=== PATIENT | male | born 1955 | race Caucasian/White ===

== ENCOUNTER 2019-02-25 20:47 | Inpatient (IN) ==
[2019-02-25] MEDS ORDERED: Isovue-370 500 ML BOTTLE IVP ONE (20:56)
[2019-02-25] MEDS ORDERED: 0.9 % Sodium Chloride 1,000 ML IVC ONE (21:00)
--- NOTE | 2019-02-25 21:02 | Emergency Department Note ---
Disposition Clinical Impression: Left lower lobe pulmonary infiltrate, Cholelithiasis, Proctitis, Ileus, Fecal impaction Abdominal pain Qualifiers: Abdominal location: lower abdomen, unspecified Qualified Code(s): R10.30 - Lower abdominal pain, unspecified Nausea and vomiting Qualifiers: Vomiting type: unspecified Vomiting Intractability: unspecified Qualified Code(s): R11.2 - Nausea with vomiting, unspecified Sepsis Qualifiers: Sepsis type: sepsis due to unspecified organism Sepsis acute organ dysfunction status: unspecified Qualified Code(s): A41.9 - Sepsis, unspecified organism Disposition: Admitted As Inpatient Condition: Serious Referrals: NONE,PCP [Primary Care Provider] - Forms: ED Satisfaction Letter Time of Disposition: 23:32 General Adult HPI - General Chief complaint: ED Nausea/Vomiting/Diarrhea Stated complaint: General Illness Time Seen by Provider: 02/25/19 20:56 Source: patient, EMS Mode of arrival: EMS Limitations: physical limitation Nursing Notes Reviewed: Yes Vital Signs Reviewed: Yes - History of Present Illness HPI Narrative: Patient is a 63-year-old male with a past medical history including hyperlipidemia, GERD, history of any stroke and possible ALS, has a tracheostomy placed and on ventilation for almost a year, has a diaphragmatic pacemaker, has a G-tube but is now able to tolerate by mouth, unable to move bilateral lower extremities, presenting with chief complaint of generalized illness for the last 2-4 days. The patient states he has been feeling nauseous and today he had 2 episodes of nonbilious nonbloody emesis. He has had several episodes of nonbloody watery diarrhea. He is also complaining of suprapubic abdominal pain. He states he has not eaten or drank much today has not urinated since yesterday at 6:30 PM. He denies the urge to go or any pressure. Denies hematuria. He also notes that this was have his gallbladder taken out however they only place a drainage catheter in the right upper quadrant that was removed on February 14. notes that there was some bleeding and purulent drainage coming out of the site today. Patient denies any fevers or chills. Patient denies any chest pain or shortness of breath. Denies cough. Pain Scale: 3 - Related Data Home Medications Medication Instructions Recorded Confirmed Albuterol Sulfate [Proair Hfa] 2 puff IH Q6H PRN 06/14/18 06/14/18 Cholecalciferol (Vitamin D3) 10,000 unit PO Q2W 06/14/18 06/14/18 [Vitamin D3] Linaclotide [Linzess] 145 mcg PO DAILY 06/14/18 06/14/18 Multivit-Minerals/Folic Acid 2 each PO DAILY 06/14/18 06/14/18 [Adult Multi Gummies] Tamsulosin [Flomax] 0.4 mg PO DAILY 06/14/18 06/14/18 Vitamin D Gummie 1 each PO QAM 06/14/18 06/14/18 Allergies Allergy/AdvReac Type Severity Reaction Status Date / Time No Known Allergies Allergy Verified 11/15/16 13:01 All systems ED: reviewed and negative except as stated. Review of Systems: As Per HPI Constitutional: Denies: fever, chills Cardiovascular: Denies: chest pain, palpitations Respiratory: Denies: cough, dyspnea Gastrointestinal: Reports: abdominal pain, nausea, vomiting, diarrhea. Denies: melena, hematochezia Genitourinary: Reports: dysuria. Denies: hematuria Past Medical History - Past Medical History Attestation: Yes The following information was validated with the patient. Source: patient Medical history: Reports: GERD, hyperlipidemia Surgical history: Reports: other Psychiatric history: Reports: no psych history - Social History Smoking Status: Former smoker Physical Exam - General Limitations: no limitations General appearance: alert, in no apparent distress - Head Head exam: atraumatic, normocephalic - Eye Eye exam: Present: normal appearance, EOMI - ENT ENT exam: normal exam, normal oropharynx Course Vital Signs Temperature 99.5 F 02/25/19 20:54 Pulse Rate 115 02/25/19 20:54 Respiratory Rate 23 02/25/19 20:54 Blood Pressure 130/109 02/25/19 20:54 O2 Sat by Pulse Oximetry 98 02/25/19 20:54 Temperature 99.5 F 02/25/19 20:54 Pulse Rate 105 02/25/19 21:48 Respiratory Rate 16 02/25/19 21:48 Blood Pressure 147/100 02/25/19 21:48 O2 Sat by Pulse Oximetry 100 02/25/19 21:48 Oxygen Delivery Oxygen Delivery Ventilator Medical Decision Making - [facility] Narrative Medical decision making narrative: Patient is in no acute distress and is nontoxic appearing however he is tachycardic and tachypneic. He does have lower abdominal tenderness to palpation without peritoneal signs. G-tube appears well. His site where the drainage catheter for the right upper quadrant gallbladder has an erythematous dried blood scab otherwise no active purulent drainage. We will obtain septic workup including chest x-ray, urinalysis. We will obtain straight catheter urinalysis as the patient has not urinated in quite some time. We will also obtain CT abdomen and pelvis with IV contrast. We will obtain CBC, BMP, lactate, blood cultures come EKG as well. Patient will initially received 1 L IV fluid bolus. 22:00 Received a call from [place] [facility]ology that on chest x-ray there is concern for pneumoperitoneum. CT is pending at this time. We will give the patient a dose of IV Zosyn. 23:30 CT pending, patient signed out to Dr. Bruno pending results - Medical Records Medical records reviewed: Yes I reviewed the patient's medical records. - Lab Data Lab results reviewed: Yes I reviewed the patient's lab results. Result diagrams: 02/25/19 21:28 02/25/19 21:28 Lab Results 02/25/19 02/25/19 02/25/19 Range/Units 21:28 21:28 21:28 WBC 9.5 (4.3-11.1) K/mcL RBC 4.43 (4.19-5.50) M/mcL Hgb 12.4 L (12.9-16.9) g/dL Hct 38.4 (37.5-50.1) % MCV 86.7 (83.0-100.0) fL MCH 28.0 (28.0-33.3) pg MCHC 32.3 (31.6-35.5) g/dL RDW 13.7 (11.5-14.5) % Plt Count 652 H (140-400) K/mcL MPV 9.8 (9.4-12.4) fL Immature Gran % 0.3 (0-4) % Seg Neutrophils % 79.2 % Lymphocytes % 16.0 % Monocytes % 4.2 % Eosinophils % 0.1 % Basophils % 0.2 % Neutrophils # 7.6 (1.6-8.9) K/mcL Lymphocytes # 1.5 (0.6-4.6) K/mcL Monocytes # 0.4 (0.0-1.3) K/mcL Eosinophils # 0.0 (0.0-0.6) K/mcL Basophils # 0.0 (0.0-0.2) K/mcL Sodium 137 (136-145) mEq/L Potassium 3.6 (3.5-5.1) mEq/L Chloride 106 (98-107) mEq/L Carbon Dioxide 18 L (23-29) mEq/L BUN 21 (8-23) mg/dL Creatinine 0.33 L (0.70-1.30) mg/dL Est GFR ( Amer) > 60 (> 60) Est GFR (Non-Af Amer) > 60 (> 60) BUN/Creatinine Ratio 64 H (6-26) Glucose 135 H (70-105) mg/dL Calculated Osmolality 289 (280-300) Lactic Acid 0.8 (0.5-2.2) mmol/L Calcium 9.1 (8.6-10.3) mg/dL Urine Color (Yellow) Urine Clarity (Clear) Urine pH (5.0-8.0) pH Units Ur Specific [place] (1.010-1.025) Urine Protein (Neg-Trace) mg/dL Urine Glucose (UA) (Normal) mg/dL Urine Ketones (Negative) mg/dL Urine Blood (Negative) Urine Nitrite (Negative) Urine Bilirubin (Negative) Urine Urobilinogen (Normal) mg/dL Ur Leukocyte Esterase (Negative) Ur Culture Indicated? (NO) 02/25/19 Range/Units 21:52 WBC (4.3-11.1) K/mcL RBC (4.19-5.50) M/mcL Hgb (12.9-16.9) g/dL Hct (37.5-50.1) % MCV (83.0-100.0) fL MCH (28.0-33.3) pg MCHC (31.6-35.5) g/dL RDW (11.5-14.5) % Plt Count (140-400) K/mcL MPV (9.4-12.4) fL Immature Gran % (0-4) % Seg Neutrophils % % Lymphocytes % % Monocytes % % Eosinophils % % Basophils % % Neutrophils # (1.6-8.9) K/mcL Lymphocytes # (0.6-4.6) K/mcL Monocytes # (0.0-1.3) K/mcL Eosinophils # (0.0-0.6) K/mcL Basophils # (0.0-0.2) K/mcL Sodium (136-145) mEq/L Potassium (3.5-5.1) mEq/L Chloride (98-107) mEq/L Carbon Dioxide (23-29) mEq/L BUN (8-23) mg/dL Creatinine (0.70-1.30) mg/dL Est GFR ( Amer) (> 60) Est GFR (Non-Af Amer) (> 60) BUN/Creatinine Ratio (6-26) Glucose (70-105) mg/dL Calculated Osmolality (280-300) Lactic Acid (0.5-2.2) mmol/L Calcium (8.6-10.3) mg/dL Urine Color Yellow (Yellow) Urine Clarity Clear (Clear) Urine pH 6.5 (5.0-8.0) pH Units Ur Specific [place] 1.020 (1.010-1.025) Urine Protein Trace (Neg-Trace) mg/dL Urine Glucose (UA) Normal (Normal) mg/dL Urine Ketones Negative (Negative) mg/dL Urine Blood Negative (Negative) Urine Nitrite Negative (Negative) Urine Bilirubin Negative (Negative) Urine Urobilinogen Normal (Normal) mg/dL Ur Leukocyte Esterase Negative (Negative) Ur Culture Indicated? NO (NO) - Radiology Data Radiology results reviewed: Yes I reviewed the patient's radiology results. - EKG Data EKG #1 EKG attestation: Yes I reviewed and interpreted this EKG. EKG results narrative: EKG obtained at 2150 shows normal sinus rhythm with heart rate 117, QRS duration 155, QTC 450. There is artifact as the patient has a diaphragmatic stimulator. No ST elevation, no ST depression, T wave inversion in lead 3, when compared to old EKG on 06/14/2018, there are no new changes. Attestation Statement - Attestation Attestation: I have seen this patient with the resident physician, I have personally evaluated this patient. I had reviewed the chart and document dictation by the resident physician and aM in agreement with the information documented by the resident physician. Please see documentation by the resident physician for complete chart including past medical history, family medical history, review of systems, current history and physical and laboratory and imaging studies. I was present for all procedures, provided direct supervision for all procedures, was present for the entirety of all procedures and provided direct guidance during the procedures. Please see documentation by the resident physician for any procedures performed. I have reviewed all interpretations of EKGs, and reviewed all EKGs performed on patient's as well. I have also reviewed reports of imaging as provided by radiology. Patient presented to the emergency department with primary chief complaint of progressively increasing abdominal pain and not feeling well over the last 4 days, with decreased by mouth intake, unable to eat or drink anything with nausea and vomiting/dry heaving over the last 24 hours, with decreased output per rectum and decreased urinary output subjective fevers and chills. He denies headache neck pain chest pain or acute shortness of breath he has no current reported respiratory symptoms but has a chronic tracheostomy. 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 He states that he does not believe he needs his diaphragm stimulator anymore, he has a G-tube which he also wants removed. He reports that about 2 months ago he had problems with his gallbladder had a drain put in his gallbladder which was removed 2 weeks ago. There was some concerns that there was maybe some abnormal drainage from the site. He denies headache or neck pain denies any lower extremity swelling. On exam, is chronically ill in appearance but nontoxic in appearance, oropharynx appears to be slightly dry. Lungs are coarse at the bases bilaterally, improved with some suctioning of his tracheostomy. Abdomen is obese with what appears to be some mild anasarca of the abdominal wall, diffuse suprapubic and lower tenderness with some mild upper tenderness without rebound guarding or peritoneal sign. His G-tube site appears healthy, his diaphragmatic abdominal stimulator site appears healthy, the right upper abdomen where his prior cholecystostomy tube site appears healthy there is no purulence, there is a small scab at this site, with no purulence warmth or erythema. Trace lower extremity edema bilaterally no unilateral swelling palpable cord or Homans sign. No jaundice. No petechiae. Patient had vital signs consistent with potential systemic inflammatory response syndrome and was made a sepsis alert, blood cultures were ordered, IV fluids were initiated. He is provided with symptomatically management. He had a Martinez catheter placed because he was unable to provide urine with immediate urine output. Chest x-ray showed findings concerning for possible free air as interpreted by radiology, patient had already had blood culture sent and was given IV Zosyn. CT of the abdomen and pelvis had already been ordered, this showed no evidence of free air, showed findings of possible cholecystitis, fecal impaction with ileus and significant distended loops of bowel and potential proctitis. Also demonstrated likely left lower lobe pneumonia CBC lactic acid renal panel within acceptable limits, elevated alkaline phosphatase and mildly elevated ALTs, no AST elevation, no hyperbilirubinemia no elevated lipase. Patient's G-tube was sent to low intermittent suction, for ileus. He was provided with fluids and symptomatic management for pain and nausea. He had improvement of his symptoms with this. CT showed findings concerning for possible cholecystitis, however the patient just had a cholecystostomy tube removed 2 weeks ago for the same problem in his laboratory studies do not necessarily suggest cholecystitis although he did have evidence for systemic inflammatory response syndrome upon presentation he also had evidence for a potential left lower lobe pneumonia which could be related to aspiration and he does have risk for this he is already given IV Zosyn. I contacted the hospitalist, who also consulted surgery after consultation with surgery, they will admit this patient for Further evaluation and management. Total critical care time as provided by myself excluding any procedures performed in evaluation and management of systemic inflammatory response syndrome, and Compazine nausea vomiting and pneumonia and potential cholecystitis were 30 minutes.
[2019-02-25] MEDS ORDERED: 0.9 % Sodium Chloride 500 ML IVC ONE (21:20)
[2019-02-25 21:41] LABS: Basophils % 0.2 %; Eosinophils % 0.1 %; Hematocrit 38.4 % (37.5-50.1); Hemoglobin 12.4 g/dL (12.9-16.9); Immature Granulocytes % 0.3 % (0-4); Lymphocytes # 1.5 K/mcL (0.6-4.6); Mean Corpuscular HGB Conc 32.3 g/dL (31.6-35.5); Mean Corpuscular Volume 86.7 fL (83.0-100.0); Mean Platelet Volume 9.8 fL (9.4-12.4); Monocytes # 0.4 K/mcL (0.0-1.3); Monocytes % 4.2 %; Neutrophils # 7.6 K/mcL (1.6-8.9); Platelet Count 652 K/mcL (140-400); Red Blood Count 4.43 M/mcL (4.19-5.50); Red Cell Distribution Width 13.7 % (11.5-14.5); Segmented Neutrophils % 79.2 %; White Blood Count 9.5 K/mcL (4.3-11.1)
[2019-02-25] MEDS ORDERED: Piperacillin/Tazobactam 3.375 GM in 0.9 % Sodium Chloride Mini Bag 100 ML IVPB ONE (21:59)
[2019-02-25 22:00] LABS: BUN/Creatinine Ratio 64 (6-26); Blood Urea Nitrogen 21 mg/dL (8-23); Calcium 9.1 mg/dL (8.6-10.3); Carbon Dioxide 18 mEq/L (23-29); Chloride 106 mEq/L (98-107); Glucose 135 mg/dL (70-105); Osmolality,Calculated 289 (280-300); Potassium 3.6 mEq/L (3.5-5.1); Sodium 137 mEq/L (136-145); eGFR For African Americans > 60 (> 60); eGFR For Non-African Americans > 60 (> 60)
[2019-02-25 22:14] LABS: Bilirubin,Urine Negative (Negative); Blood,Urine Negative (Negative); Clarity,Urine Clear (Clear); Color,Urine Yellow (Yellow); Glucose,Urine (UA) Normal (Normal); Ketones,Urine Negative (Negative); Leukocyte Esterase,Urine Negative (Negative); Nitrite,Urine Negative (Negative); PH,Urine 6.5 pH Units (5.0-8.0); Protein,Urine Trace mg/dL (Neg-Trace); Urobilinogen,Urine Normal (Normal)
[2019-02-26 00:32] LABS: Alanine Aminotransferase 144 Units/L (7-52); Albumin 3.4 g/dL (3.5-5.7); Alkaline Phosphatase 437 Units/L (34-104); Aspartate Amino Transferase 36 Units/L (13-39); Bilirubin,Direct 0.2 mg/dL (0.0-0.2); Bilirubin,Indirect 0.6 mg/dL (0.0-1.2); Bilirubin,Total 0.8 mg/dL (0.3-1.0); Globulin 3.4 g/dL (2.4-3.5); Lipase 11 Units/L (11-82); Total Protein 6.8 g/dL (6.4-8.9)
[2019-02-26] MEDS ORDERED: Ketorolac 15 MG/ML VIAL IVP PRN (01:09)
[2019-02-26] MEDS ORDERED: Ondansetron 4 MG/2 ML VIAL IVP PRN (01:09)
[2019-02-26] MEDS ORDERED: Naloxone 0.4 MG/ML INJ IVP PRN (01:09)
--- NOTE | 2019-02-26 01:11 | AcuteCare Surgery Consult Note ---
Date of Encounter: 02/26/19 Time of Encounter: 01:10 Assessment and Plan (1) Acute cholecystitis due to biliary calculus Current Visit: Yes Status: Acute Pt diagnosis of acute cholecystitis with symptomatic cholelithiasis is discussed. Laparoscopic Cholecystectomy is recommended. Procedure for the surgery, risks and benefits are discussed in detail. Possible known complications for Laparoscopic Cholecystectomy are bleeding, infection, bile duct injury, bile leak, small intestine or stomach injury, stroke, DVT/PE, NM or . Pt understands these risks, which in this case are moderate. Pt wishes to proceed with surgery as soon as possible. NPO. IVF. IV abx. Informed consent is obtained. Pt condition is stable. Surgery is scheduled. (2) Chronic respiratory failure Current Visit: Yes Status: Acute Pt is with trach and s/p diaphragm pacemaker. Qualifiers: Qualified Code(s): J96.10 - Chronic respiratory failure, unspecified whether with hypoxia or hypercapnia (3) HTN (hypertension) Current Visit: No Status: Chronic Qualifiers: Hypertension type: essential hypertension Qualified Code(s): I10 - Essenti al (primary) hypertension History of Present Illness Reason for consult: gallstones (with acute cholecystitis) Requesting physician: Trisha Sam History of present illness: This y/o pt presents to [facility] ED c/o severe abdominal pain. Pt reports pain is predominantly in. Pain radiates to. However, pt also c/o pain in that was . Pt reports pain has been present for. He states that the chronic, intermittent low grade pain worsened to the point of intolerence today. Now, the pain is constant and severe. Pt reports nausea and vomiting. Pt denies hematemesis or coffee ground emesis. Pt reports flatus and BM. BM have become loose today. Pt denies hematochezia or melena. Reports decreased appetite. Denies fever. Past Med Surg Social Fam HX - Past Medical History Medical history: GERD, hyperlipidemia Additional medical history: Former smoker Psychiatric history: no psych history - Past Surgical History Surgical History: other Additional surgical history: cysts removed from arm and back - Social History Smoking Status: Former smoker - Family History Mother History Unknown: Yes Medications and Allergies Apixaban [Eliquis] 5 mg PO BID 02/26/19 [History] Argin/Glut/Cahmb/Collag/Mv-Min [Avi Packet] 1 each PO BID 02/26/19 [History] Ascorbic Acid [Vitamin C] 500 mg PO DAILY 02/26/19 [History] Cholecalciferol (D-3) [Vitamin D] 2,000 unit PO BID 02/26/19 [History] Citalopram Hydrobromide [Citalopram HBr] 10 mg PO BID 02/26/19 [History] Ferrous Sulfate [Iron] 325 mg PO DAILY 02/26/19 [History] Ipratropium/Albuterol Neb [Duoneb] 3 ml IH BID 02/26/19 [History] LORazepam [Ativan] 0.5 mg PO QID PRN 02/26/19 [History] Metoprolol [Lopressor] 25 mg PO BID 02/26/19 [History] Multivit-Min/Iron/Folic Acid/K [Adults Multivitamin Caplet] 1 tab PO DAILY 02/26/19 [History] Omeprazole [PriLOSEC] 20 mg PO DAILY 02/26/19 [History] Ondansetron HCl [Zofran] 4 mg PO QID PRN 02/26/19 [History] Simethicone [Gas Relief] 80 mg PO QID PRN MDD gas 02/26/19 [History] Allergy/AdvReac Type Severity Reaction Status Date / Time No Known Allergies Allergy Verified 11/15/16 13:01 Review of Systems All systems PM: The remainder of the systems were reviewed and are negative - Constitutional anorexia, fatigue, weakness, no chills, no fever(s), no night sweats - EENT Nose, mouth and throat: dry mouth, dysphagia, other (trach in place), no dizziness, no nasal congestion, no nasal discharge, no sinus pain, no sinus pressure, no sore throat - Cardiovascular chest pain, diaphoresis, dyspnea, edema - Respiratory cough, dyspnea, wheezing - Gastrointestinal abdominal pain, belching, bloating, nausea, no constipation, no diarrhea, no hematemesis, no melena, no vomiting - Genitourinary no difficulty urinating, no dysuria, no urinary frequency - Musculoskeletal atrophy, back pain, no joint swelling, no limited range of motion, no neck pain - Integumentary no dry skin, no pruritus, no rash, no wounds, no jaundice - Neurological weakness, no confusion, no dizziness, no focal weakness - Psychiatric no anxiety, no depression - Endocrine no fatigue - Hematologic/Lymphatic no easy bleeding, no easy bruising General Surgery Exam Initial Vital Signs Temp Pulse Resp BP Pulse Ox 99.5 F 115 23 130/109 98 02/25/19 20:54 02/25/19 20:54 02/25/19 20:54 02/25/19 20:54 02/25/19 20:54 - General physical appearance moderate pain. negative: well nourished, no distress, jaundice - Eyes PERRL, normal ocular movement. negative: icteric - ENT no congestion, dry mucosa. negative: nasal discharge - Neck other (trach in place) - Respiratory normal respiratory effort, clear to auscultation - Cardiovascular Cardiovascular exam: Present: RRR. Absent: JVD - Abdomen Abdomen general surgery: Present: bowel sounds present, soft, tender. Absent: distended Abdominal Tenderness: Present: RUQ - Genitourinary Present: normal penis with no external lesions - Integumentary Integumentary general surgery: Present: warm and dry - Neurologic Present: CN 2-12 grossly intact, normal coordination - Musculoskeletal Present: normal posture - Psychiatric Psychiatric general surgery: Present: A&Ox3, appropriate Exam Initial Vital Signs Temp Pulse Resp BP Pulse Ox 99.5 F 115 23 130/109 98 02/25/19 20:54 02/25/19 20:54 02/25/19 20:54 02/25/19 20:54 02/25/19 20:54 Results - Labs 02/26/19 05:36 02/26/19 05:36 Abnormal lab results Hgb 12.4 g/dL (12.9-16.9) L 02/25/19 21:28 Plt Count 652 K/mcL (140-400) H 02/25/19 21:28 Carbon Dioxide 18 mEq/L (23-29) L 02/25/19 21:28 Creatinine 0.33 mg/dL (0.70-1.30) L 02/25/19 21:28 BUN/Creatinine Ratio 64 (6-26) H 02/25/19 21:28 Glucose 135 mg/dL (70-105) H 02/25/19 21:28 ALT 144 Units/L (7-52) H 02/25/19 21:28 Alkaline Phosphatase 437 Units/L (34-104) H 02/25/19 21:28 Albumin 3.4 g/dL (3.5-5.7) L 02/25/19 21:28 Albumin/Globulin Ratio 1.0 (1.1-2.2) L 02/25/19 21:28 Diabetes panel 02/25/19 Range/Units 21:28 Sodium 137 (136-145) mEq/L Potassium 3.6 (3.5-5.1) mEq/L Chloride 106 (98-107) mEq/L Carbon Dioxide 18 L (23-29) mEq/L BUN 21 (8-23) mg/dL Creatinine 0.33 L (0.70-1.30) mg/dL Glucose 135 H (70-105) mg/dL Calcium 9.1 (8.6-10.3) mg/dL AST 36 (13-39) Units/L ALT 144 H (7-52) Units/L Alkaline Phosphatase 437 H (34-104) Units/L Albumin 3.4 L (3.5-5.7) g/dL Calcium panel 02/25/19 Range/Units 21:28 Calcium 9.1 (8.6-10.3) mg/dL Albumin 3.4 L (3.5-5.7) g/dL Pituitary panel 02/25/19 Range/Units 21:28 Sodium 137 (136-145) mEq/L Potassium 3.6 (3.5-5.1) mEq/L Chloride 106 (98-107) mEq/L Carbon Dioxide 18 L (23-29) mEq/L BUN 21 (8-23) mg/dL Creatinine 0.33 L (0.70-1.30) mg/dL Glucose 135 H (70-105) mg/dL Calcium 9.1 (8.6-10.3) mg/dL Adrenal panel 02/25/19 Range/Units 21:28 Sodium 137 (136-145) mEq/L Potassium 3.6 (3.5-5.1) mEq/L Chloride 106 (98-107) mEq/L Carbon Dioxide 18 L (23-29) mEq/L BUN 21 (8-23) mg/dL Creatinine 0.33 L (0.70-1.30) mg/dL Glucose 135 H (70-105) mg/dL Calcium 9.1 (8.6-10.3) mg/dL Total Bilirubin 0.8 (0.3-1.0) mg/dL AST 36 (13-39) Units/L ALT 144 H (7-52) Units/L Alkaline Phosphatase 437 H (34-104) Units/L Albumin 3.4 L (3.5-5.7) g/dL All other labs normal. - Imaging CT scan - abdomen: image reviewed (There is gallbladder wall thickening with gallstones and mild pericholecystic edema.) CT scan - pelvis: image reviewed Consult Discharge Plan - Plan Instructions: Laparoscopic Cholecystectomy (DC) Additional Instructions: General Surgical Discharge Instructions 1. No pushing, pulling, or lifting greater than 15 lbs for 4 weeks. 2. You may remove your dressings and shower beginning today, but no tub baths, soaking, or swimming for 2 weeks. 3. No driving for one weeks unless otherwise specified and then you may resume driving when you are off narcotics and are safe to react in a car. 4. Apply ice 20 minutes every hour that you are awake to your abdomen and Take 650 mg acetaminophen/Tylenol every 8 hours for discomfort. If this does not relieve discomfort, you may take the as needed Percocet. Eat a small snack with pain medication as this will help reduce the risk of nausea. Take narcotics as directed. Do not take more narcotics then directed and do not share your narcotics with any other person. Do not drink alcohol while on narcotics. You can take the Zofran/ondansetron if needed for nausea or with a dose of narcotics to prevent nausea. Do not take more than 4 Grams of Tylenol daily. 5. Take stool softeners (Colace) or a water based laxative (Miralax) while taking narcotics. You may hold for loose stools. 6. Report any fevers greater than 100.5F, increase abdominal discomfort, drainage that looks like pus, increased redness or pain at the surgical site, or any vomiting. 7. Report any pain in the calves, shortness of breath, or rapid heartbeat. 8. Follow-up in the office as directed. 9. If you were prescribed antibiotics, do not stop them without talking to your provider. Referrals: Lidia Delvalle CNP [Advanced Practice Nurse] - 03/19/19 1:30 pm [facility],PCP [Primary Care Provider[facility] -
[2019-02-26] MEDS ORDERED: 0.9 % Sodium Chloride 1,000 ML IVC SCH (01:15)
--- NOTE | 2019-02-26 01:21 | Internal Med History&Physical ---
Date of Encounter: 02/26/19 Time of Encounter: 01:18 Internal Medicine - H&P: HPI Chief complaint: Abdominal Pain History of present illness: Mr. Modi is a 63 year old male with a past medical history of chronic back pain, hypertension, GERD, possible ALS, s/p tracheostomy placed on ventilation for almost a year presumably due to diaphragmatic paralysis requiring diap hragmatic pacemaker presenting with chief complaint of generalized abdominal pain for the past several days. Much of the history was obtained from ED records as patient is is a poor historian due to inability to vocalize during my assessment as he was on his home ventilator. Abdominal pain reported to be involving the lower abdomen and suprapubic region associated with difficulty urinating, 2 episodes of nonbilious nonbloody emesis and subjective fever and chills. No reports of chest pain, shortness of breath or cough. 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 Patient also has a G-tube in place which she feels he does not need anymore and would like removed. Patient also reported issue with his gallbladder for which she had a cholecystostomy tube placed which was recently moved approximately 2 weeks ago. had noted abnormal drainage from the site. On arrival patient was afebrile, mildly tachycardic with a normal leukocyte count and lactic acid. Alkaline phosphatase was elevated at 437 in addition to ALT of 144. Remainder of laboratory workup including urinalysis were unremarkable. A CT of the abdomen was obtained which showed a large amount of stool within the rectum compatible with impaction and mural thickening concerning for stercoral proctitis. There was diffuse dilatation of both the gastric, small and large bowel were noted compatible with ileus. Additionally, there was gallbladder wall thickening with gallstones and mild pericholecystic edema. Given findings case was discussed with acute care surgery for possible cholecystitis. Patient was placed on gastric suctioning via his G-tube with overall 100 mL of abdominal contents drained. Martinez catheter was placed with resulted in a large amount of urine output. Patient on my assessment reported to be feeling significantly better after bladder was drained he states. Patient received a liter and a half of fluids. Blood cultures were obtained patient was given one-time dose of Zosyn. We will admit for for possible acute cholecystitis. Past Med Surg Social Fam HX - Past Medical History Medical history: GERD, hyperlipidemia Additional medical history: Former smoker Psychiatric history: no psych history - Past Surgical History Surgical History: other Additional surgical history: cysts removed from arm and back - Social History Smoking Status: Former smoker - Family History Mother History Unknown: Yes Internal Medicine - H&P: Meds Apixaban [Eliquis] 5 mg PO BID 02/26/19 [History] Argin/Glut/Cahmb/Collag/Mv-Min [Avi Packet] 1 each PO BID 02/26/19 [History] Ascorbic Acid [Vitamin C] 500 mg PO DAILY 02/26/19 [History] Cholecalciferol (D-3) [Vitamin D] 2,000 unit PO BID 02/26/19 [History] Citalopram Hydrobromide [Citalopram HBr] 10 mg PO BID 02/26/19 [History] Ferrous Sulfate [Iron] 325 mg PO DAILY 02/26/19 [History] Ipratropium/Albuterol Neb [Duoneb] 3 ml IH BID 02/26/19 [History] Lactose-Reduced Food [Ensure Plus] 1 bottle PO TID 02/26/19 [History] Metoprolol Tartrate [Lopressor] 25 mg PO BID 02/26/19 [History] Multivit-Min/Iron/Folic Acid/K [Adults Multivitamin Caplet] 1 tab PO DAILY 02/26/19 [History] Omeprazole [PriLOSEC] 20 mg PO DAILY 02/26/19 [History] Simethicone [Gas Relief] 80 mg PO QID PRN MDD gas 02/26/19 [History] Allergy/AdvReac Type Severity Reaction Status Date / Time No Known Allergies Allergy Verified 11/15/16 13:01 All Systems PM: A 10-system review of systems was performed and is negative for pertinent findings except as documented above in the HPI. - Constitutional Constitutional: no chills, no fever(s), no night sweats - EENT Eyes: no change in vision, no discharge, no pain, no photophobia Ears: no ear discharge, no ear pain, no tinnitus Nose, mouth and throat: no dysphagia, no nasal discharge, no neck pain, no sore throat - Cardiovascular Cardiovascular ROS IM: no chest pain, no diaphoresis, no dyspnea, no ligh theadedness, no palpitations, no syncope - Respiratory Respiratory: no cough, no dyspnea, no wheezing, no excessive phlegm production - Gastrointestinal Gastrointestinal: no abdominal pain, no diarrhea, no hematemesis, no hematochezia, no melena, no nausea, no vomiting - Musculoskeletal Musculoskeletal ROS IM: no numbness, no tingling - Integumentary Integumentary IM: no rash, no unusual bruising - Neurological Neurological ROS: no confusion, no convulsions, no focal weakness, no numbness, no tingling, no tremor(s) - Hematologic/Lymphatic Hematologic/Lymphatic: no easy bruising - Constitutional Vitals: Temp Pulse Resp BP Pulse Ox 99.5 F 105 16 147/100 100 02/25/19 20:54 02/25/19 21:48 02/25/19 21:48 02/25/19 21:48 02/25/19 21:48 Exam: General: Alert and oriented 3 lying in bed in no acute distress on trach home ventilator Skin:Normal color, no rash, no lesions. HEENT:EOM, pupils equal, round and reactive. Cardiovascular:Normal S1 & S2, no rubs, murmurs or gallops. No JVD. Pulse regular. Lungs:Normal breath sounds, no wheezes or crackles. Abdomen: Positive bowel sounds; diffuse suprapubic and lower abdominal tenderness with mild palpation no rebound or guarding. G-tube in place with no surrounding evidence of erythema or discharge. Diaphragmatic abdominal stimulator site appears healthy. Extremities:No deformity, no edema or tenderness, no joint swelling or clubbing. Neurological:Normal cognition and motor skills. Pulses:Carotid and radial pulses normal +2. Rest of the physical exam is non contributory Internal Med - H&P Results - Labs CBC & Chem 7: 02/26/19 05:36 02/26/19 05:36 Labs: Short CBC 02/25/19 Range/Units 21:28 WBC 9.5 (4.3-11.1) K/mcL Hgb 12.4 L (12.9-16.9) g/dL Hct 38.4 (37.5-50.1) % Plt Count 652 H (140-400) K/mcL Neutrophils # 7.6 (1.6-8.9) K/mcL BMP 02/25/19 21:28 Sodium 137 Potassium 3.6 Chloride 106 Carbon Dioxide 18 L BUN 21 Creatinine 0.33 L Glucose 135 H Calcium 9.1 Liver Function 02/25/19 Range/Units 21:28 Total Bilirubin 0.8 (0.3-1.0) mg/dL Direct Bilirubin 0.2 (0.0-0.2) mg/dL AST 36 (13-39) Units/L ALT 144 H (7-52) Units/L Alkaline Phosphatase 437 H (34-104) Units/L Albumin 3.4 L (3.5-5.7) g/dL Urine 02/25/19 Range/Units 21:52 Urine Color Yellow (Yellow) Urine Clarity Clear (Clear) Urine pH 6.5 (5.0-8.0) pH Units Ur Specific [place] 1.020 (1.010-1.025) Urine Protein Trace (Neg-Trace) mg/dL Urine Glucose (UA) Normal (Normal) mg/dL - Impressions ITS Impressions Chest X-Ray 02/25/19 21:51 IMPRESSION: 1. Questionable pneumoperitoneum. CT of the abdomen and pelvis is recommended for further evaluation. 2. Dilated loops of bowel, concerning for an ileus. 3. Low lung volumes with bibasilar atelectasis. Results discussed with Dr. Hernandez at 9:59 p.m. on 02/25/2019. D/ / 02/25/2019 22:43:29 Den Carson MD / vimal Interpreting Provider: Den Carson MD Abdomen/Pelvis CT 02/25/19 23:29 IMPRESSION: Large amount of stool within the rectum compatible without impaction. Despite the dilation of the rectum, there is mild mural thickening with surrounding fat stranding, and therefore a component of stercoral proctitis is likely. There is diffuse gaseous dilation of both large and small bowel, most compatible with ileus. Gastric distention also present suggesting gastroparesis. There is gallbladder wall thickening with gallstones and mild pericholecystic edema. Correlate with clinical evidence of cholecystitis. Collapse and consolidation within the lower lungs bilaterally, greater on the left, compatible with some combination of aspiration, scarring, and pneumonia. D/ / Leonel Taylor MD / Leonel Taylor MD Interpreting Provider: Leonel Taylor MD - Assessment and Plan (1) Abdominal pain Current Visit: Yes Status: Acute Assessment and plan: Patient presenting with several day history of lower abdominal pain/suprapubic. CT scan of the abdomen and pelvis showing large amount of stool burden as well as evidence of gastric, small and large bowel distention concerning for ileus. Patient reported to be feeling much better after decompression of the bowels via his G-tube as well as placement of Martinez catheter. Patient had a BM shortly after arrival to the floor. CT scan also showing findings concerning for acute cholecystitis. Acute care surgeon was consult in who assessed the patient and will be taking for cholecystectomy in the morning. -Continue fluids and supportive care -Bowel rest overnight -Continue IV antibiotics for possible acute cholecystitis -Hold Apixiban -Plan for cholecystectomy in the morning Qualifiers: Abdominal location: lower abdomen, unspecified Qualified Code(s): R10.30 - Lower abdominal pain, unspecified (2) Tracheostomy care Current Visit: Yes Status: Acute Assessment and plan: Patient status post tracheostomy ostomy in the setting of a diaphragmatic paralysis with subcutaneous diaphragmatic stimulator in place. Patient reporting that he feels he no longer needs a stimulator. Otherwise is on a home ventilator and performs a daily suctioning as needed himself. -Continue home inhalers twice a day (3) GERD (gastroesophageal reflux disease) Current Visit: No Status: Chronic Assessment and plan: We will transition to Protonix IV push twice a day Qualifiers: Esophagitis presence: esophagitis presence not specified Qualified Code(s): K21.9 - Gastro-esophageal reflux disease without esophagitis (4) HTN (hypertension) Current Visit: No Status: Chronic Assessment and plan: Blood pressure stable. Holding antihypertensives for now Qualifiers: Hypertension type: essential hypertension Qualified Code(s): I10 - Essential (primary) hypertension (5) Pulmonary embolism Current Visit: Yes Status: Acute Assessment and plan: Reported history of PE on Apixiban -Hold anticoagulation for now Qualifiers: Acute cor pulmonale presence: without acute cor pulmonale Qualified Code(s): I26.99 - Other pulmonary embolism without acute cor pulmonale (6) DVT prophylaxis Current Visit: No Status: Acute Assessment and plan: Intermittent pneumatic compression devices - Time Spent With Patient Total time spent is greater than 50% in coordination of care (as documented) at patient's floor/unit and/or counseling patient:
[2019-02-26 06:08] LABS: Basophils % 0.4 %; Eosinophils # 0.1 K/mcL (0.0-0.6); Eosinophils % 1.8 %; Hematocrit 39.1 % (37.5-50.1); Hemoglobin 12.5 g/dL (12.9-16.9); Immature Granulocytes % 0.1 % (0-4); Lymphocytes # 1.9 K/mcL (0.6-4.6); Mean Corpuscular Hemoglobin 28.4 pg (28.0-33.3); Mean Corpuscular Volume 88.9 fL (83.0-100.0); Mean Platelet Volume 9.8 fL (9.4-12.4); Monocytes # 0.6 K/mcL (0.0-1.3); Monocytes % 7.7 %; Neutrophils # 4.6 K/mcL (1.6-8.9); Platelet Count 583 K/mcL (140-400); Red Cell Distribution Width 13.8 % (11.5-14.5); White Blood Count 7.2 K/mcL (4.3-11.1)
[2019-02-26 06:27] LABS: Alanine Aminotransferase 126 Units/L (7-52); Albumin 3.4 g/dL (3.5-5.7); Alkaline Phosphatase 396 Units/L (34-104); Aspartate Amino Transferase 28 Units/L (13-39); BUN/Creatinine Ratio 74 (6-26); Bilirubin,Total 0.8 mg/dL (0.3-1.0); Blood Urea Nitrogen 25 mg/dL (8-23); Calcium 9.6 mg/dL (8.6-10.3); Carbon Dioxide 25 mEq/L (23-29); Chloride 104 mEq/L (98-107); Globulin 3.4 g/dL (2.4-3.5); Glucose 109 mg/dL (70-105); Magnesium 2.1 mg/dL (1.6-2.6); Osmolality,Calculated 295 (280-300); Potassium 3.5 mEq/L (3.5-5.1); Sodium 140 mEq/L (136-145); Total Protein 6.8 g/dL (6.4-8.9); eGFR For African Americans > 60 (> 60); eGFR For Non-African Americans > 60 (> 60)
[2019-02-26 06:37] LABS: INR 1.5; Prothrombin Time 17.2 Seconds (9.4-12.1)
[2019-02-26 06:40] LABS: Activated Partial Thrombo Time 42.4 Seconds (26.0-36.0)
[2019-02-26] MEDS: Piperacillin/Tazobactam 3.375 GM in 0.9 % Sodium Chloride Mini Bag 100 ML IVPB SCH ×2 (07:48→16:16)
[2019-02-26] MEDS: Pantoprazole 40 MG VIAL IVP SCH (07:48)
[2019-02-26] MEDS: Ipratropium/Albuterol Neb 3 ML IH SCH ×2 (11:08→22:16)
[2019-02-26] MEDS ORDERED: Isovue-300 50 ML VIAL ONE ×2 (13:48→20:13)
--- NOTE | 2019-02-26 13:55 | Internal Med Progress Note ---
Hospitalist Progress Note - Encounter Date of Encounter: 02/26/19 Time of Encounter: 13:53 - Subjective Interval History: Patient seen and examined. He notes he is feeling much better. No acute events overnight. Patient says that he has not used his G tube in almost 6 months. He is supposed to have it removed but not sure by who. - Exam Vitals: Temp Pulse Resp BP Pulse Ox 98.2 F 78 18 113/75 93 02/26/19 11:49 02/26/19 11:49 02/26/19 11:49 02/26/19 11:49 02/26/19 11:49 Exam: General: Alert and oriented 3 lying in bed in no acute distress on trach home ventilator Skin:Normal color, no rash, no lesions. HEENT:EOM, pupils equal, round and reactive. Cardiovascular:Normal S1 & S2, no rubs, murmurs or gallops. No JVD. Pulse regular. Lungs:Normal breath sounds, no wheezes or crackles. Abdomen: Positive bowel sounds; non-tender, non-distended. G-tube in place with no surrounding evidence of erythema or discharge. Diaphragmatic abdominal stimulator site appears healthy. Extremities:No deformity, no edema or tenderness, no joint swelling or clubbing. Neurological:Normal cognition and motor skills. Pulses:Carotid and radial pulses normal +2. Rest of the physical exam is non contributory - Assessment and Plan (1) Acute cholecystitis due to biliary calculus Current Visit: Yes Status: Acute Assessment and Plan: Patient presenting with several day history of lower abdominal pain/suprapubic. CT scan of the abdomen and pelvis showing large amount of stool burden as well as evidence of gastric, small and large bowel distention concerning for ileus. Patient reported to be feeling much better after decompression of the bowels via his G-tube as well as placement of Martinez catheter. Patient had a BM shortly after arrival to the floor. CT scan also showing findings concerning for acute cholecystitis. Acute care surgeon was consult in who assessed the patient and will be taking for cholecystectomy in the morning. -Continue fluids and supportive care -Continue abx for now -NPO in preparation for surgery -Surgery consulted: plan for surgery (2) Tracheostomy care Current Visit: Yes Status: Acute Assessment and Plan: Patient status post tracheostomy ostomy in the setting of a diaphragmatic paralysis with subcutaneous diaphragmatic stimulator in place. Patient reporting that he feels he no longer needs a stimulator. Otherwise is on a home ventilator and performs a daily suctioning as needed himself. -Continue home inhalers twice a day -Patient will need to f/u with outpatient physicians with regards to continuation of stimulator (3) GERD (gastroesophageal reflux disease) Current Visit: No Status: Chronic Assessment and Plan: We will transition to Protonix IV push twice a day (4) HTN (hypertension) Current Visit: No Status: Chronic Assessment and Plan: Blood pressure stable -Restart home meds after surgery when patient tolerating PO diet (5) DVT prophylaxis Current Visit: No Status: Acute Assessment and Plan: Intermittent pneumatic compression devices - Time Spent with Patient Total time spent is greater than 50% in coordination of care (as documented) at patient's floor/unit and/or counseling patient: 35 minutes Internal Medicine: Result - Labs CBC & Chem 7: 02/26/19 05:36 02/26/19 05:36 Labs: Short CBC 02/25/19 02/26/19 Range/Units 21:28 05:36 WBC 9.5 7.2 (4.3-11.1) K/mcL Hgb 12.4 L 12.5 L (12.9-16.9) g/dL Hct 38.4 39.1 (37.5-50.1) % Plt Count 652 H 583 H (140-400) K/mcL Neutrophils # 7.6 4.6 (1.6-8.9) K/mcL BMP 02/25/19 02/26/19 21:28 05:36 Sodium 137 140 Potassium 3.6 3.5 Chloride 106 104 Carbon Dioxide 18 L 25 BUN 21 25 H Creatinine 0.33 L 0.34 L Glucose 135 H 109 H Calcium 9.1 9.6 Liver Function 02/25/19 02/26/19 Range/Units 21:28 05:36 Total Bilirubin 0.8 0.8 (0.3-1.0) mg/dL Direct Bilirubin 0.2 (0.0-0.2) mg/dL AST 36 28 (13-39) Units/L ALT 144 H 126 H (7-52) Units/L Alkaline Phosphatase 437 H 396 H (34-104) Units/L Albumin 3.4 L 3.4 L (3.5-5.7) g/dL Urine 02/25/19 Range/Units 21:52 Urine Color Yellow (Yellow) Urine Clarity Clear (Clear) Urine pH 6.5 (5.0-8.0) pH Units Ur Specific [place] 1.020 (1.010-1.025) Urine Protein Trace (Neg-Trace) mg/dL Urine Glucose (UA) Normal (Normal) mg/dL - ABG Interpretation ABG results: PT/INR, D-dimer PT 17.2 Seconds (9.4-12.1) H 02/26/19 05:36 - Impressions Impressions Chest X-Ray 02/25/19 21:51 IMPRESSION: 1. Questionable pneumoperitoneum. CT of the abdomen and pelvis is recommended for further evaluation. 2. Dilated loops of bowel, concerning for an ileus. 3. Low lung volumes with bibasilar atelectasis. Results discussed with Dr. Hernandez at 9:59 p.m. on 02/25/2019. D/ / 02/25/2019 22:43:29 Den Carson MD / vimal Interpreting Provider: Den Carson MD Abdomen/Pelvis CT 02/25/19 23:29 IMPRESSION: Large amount of stool within the rectum compatible without impaction. Despite the dilation of the rectum, there is mild mural thickening with surrounding fat stranding, and therefore a component of stercoral proctitis is likely. There is diffuse gaseous dilation of both large and small bowel, most compatible with ileus. Gastric distention also present suggesting gastroparesis. There is gallbladder wall thickening with gallstones and mild pericholecystic edema. Correlate with clinical evidence of cholecystitis. Collapse and consolidation within the lower lungs bilaterally, greater on the left, compatible with some combination of aspiration, scarring, and pneumonia. D/ / Leonel Taylor MD / Leonel Taylor MD Interpreting Provider: Leonel Taylor MD Consult Discharge Plan - Plan Instructions: Laparoscopic Cholecystectomy (DC) Additional Instructions: General Surgical Discharge Instructions 1. No pushing, pulling, or lifting greater than 15 lbs for 4 weeks. 2. You may remove your dressings and shower beginning today, but no tub baths, soaking, or swimming for 2 weeks. 3. No driving for one weeks unless otherwise specified and then you may resume driving when you are off narcotics and are safe to react in a car. 4. Apply ice 20 minutes every hour that you are awake to your abdomen and Take 650 mg acetaminophen/Tylenol every 8 hours for discomfort. If this does not relieve discomfort, you may take the as needed Percocet. Eat a small snack with pain medication as this will help reduce the risk of nausea. Take narcotics as directed. Do not take more narcotics then directed and do not share your narcotics with any other person. Do not drink alcohol while on narcotics. You can take the Zofran/ondansetron if needed for nausea or with a dose of narcotics to prevent nausea. Do not take more than 4 Grams of Tylenol daily. 5. Take stool softeners (Colace) or a water based laxative (Miralax) while taking narcotics. You may hold for loose stools. 6. Report any fevers greater than 100.5F, increase abdominal discomfort, drainage that looks like pus, increased redness or pain at the surgical site, or any vomiting. 7. Report any pain in the calves, shortness of breath, or rapid heartbeat. 8. Follow-up in the office as directed. 9. If you were prescribed antibiotics, do not stop them without talking to your provider. Referrals: Lidia Delvalle CNP [Advanced Practice Nurse] - 03/19/19 1:30 pm [facility] [Primary Care Provider[facility] - (3) GERD (gastroesophageal reflux disease) Qualifiers: Esophagitis presence: esophagitis presence not specified Qualified Code(s): K21.9 - Gastro-esophageal reflux disease without esophagitis (4) HTN (hypertension) Qualifiers: Hypertension type: essential hypertension Qualified Code(s): I10 - Essential (primary) hypertension
[2019-02-26 14:12] LABS: Acinetobacter baumannii by PCR Not Detected (Not Detect); Candida albicans by PCR Not Detected (Not Detect); Candida glabrata by PCR Not Detected (Not Detect); Candida krusei by PCR Not Detected (Not Detect); Candida parapsilosis by PCR Not Detected (Not Detect); Candida tropicalis by PCR Not Detected (Not Detect); Enterobacter cloacae Cmplx PCR Not Detected (Not Detect); Enterobacteriaceae by PCR Not Detected (Not Detect); Enterococcus by PCR DETECTED (Not Detect); Escherichia coli by PCR Not Detected (Not Detect); Klebsiella oxytoca by PCR Not Detected (Not Detect); Klebsiella pneumoniae by PCR Not Detected (Not Detect); Proteus by PCR Not Detected (Not Detect); Pseudomonas aeruginosa by PCR Not Detected (Not Detect); Serratia marcescens by PCR Not Detected (Not Detect); Staphylococcus aureus by PCR Not Detected (Not Detect); Staphylococcus by PCR Not Detected (Not Detect); Streptococcus agalactiae(B)PCR Not Detected (Not Detect); Streptococcus by PCR Not Detected (Not Detect); Streptococcus pneumoniae PCR Not Detected (Not Detect); Streptococcus pyogenes (A) PCR Not Detected (Not Detect); blaKPC Carbapenem-Resist Gene Not Detected (Not Detect); mecA Methicillin-Resist Gene Not Detected (Not Detect); vanA/B Vancomycin-Resist Genes Not Detected (Not Detect)
--- NOTE | 2019-02-26 16:02 | Anesthesia Evaluation PreOp ---
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 Other Medical History: GERD Anesthesia History: No Prior Anesthetic Complications, Past Anesthesia (trach, diaphragmatic pacer) Medications and Allergies Apixaban [Eliquis] 5 mg PO BID 02/26/19 [History] Argin/Glut/Cahmb/Collag/Mv-Min [Avi Packet] 1 each PO BID 02/26/19 [History] Ascorbic Acid [Vitamin C] 500 mg PO DAILY 02/26/19 [History] Cholecalciferol (D-3) [Vitamin D] 2,000 unit PO BID 02/26/19 [History] Citalopram Hydrobromide [Citalopram HBr] 10 mg PO BID 02/26/19 [History] Ferrous Sulfate [Iron] 325 mg PO DAILY 02/26/19 [History] Ipratropium/Albuterol Neb [Duoneb] 3 ml IH BID 02/26/19 [History] LORazepam [Ativan] 0.5 mg PO QID PRN 02/26/19 [History] Metoprolol [Lopressor] 25 mg PO BID 02/26/19 [History] Multivit-Min/Iron/Folic Acid/K [Adults Multivitamin Caplet] 1 tab PO DAILY 02/26/19 [History] Omeprazole [PriLOSEC] 20 mg PO DAILY 02/26/19 [History] Ondansetron HCl [Zofran] 4 mg PO QID PRN 02/26/19 [History] Simethicone [Gas Relief] 80 mg PO QID PRN MDD gas 02/26/19 [History] Allergy/AdvReac Type Severity Reaction Status Date / Time No Known Allergies Allergy Verified 11/15/16 13:01 - Meds/Allergy Pre-op Review Medications Reviewed: Yes Allergies Reviewed: Yes Beta Blockers on Current Med List: No Anesthesia Results - Labs 02/26/19 05:36 02/26/19 05:36 - Imaging EKG: report reviewed ( Interpretive Statements Sinus rhythm Inferior infarct, old Electronically Signed On 06-15-2018 17:07:10 EST by Sánchez Foster) Anesthesia Exam Vital Signs/O2 Sat, Most Current Temp Pulse Resp BP Pulse Ox 98.2 F 78 18 113/75 95 02/26/19 11:49 02/26/19 11:49 02/26/19 11:49 02/26/19 11:49 02/26/19 14:22 Weight: 74kg NPO (# of Hours): >8 - HEENT Pupil (Motor): Pupils equal, EOMI Mallampati: Trach Teeth: Normal Oral Opening: Greater than 3 - 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
[2019-02-26] MEDS ORDERED: Ondansetron 4 MG/2 ML VIAL IVP ONE (16:08)
[2019-02-26] MEDS ORDERED: *HR* Meperidine 25 MG/ML SYRINGE IVP PRN (16:08)
[2019-02-26] MEDS ORDERED: *HR* FentaNYL (PF) 100 MCG/2 ML VIAL IVP PRN (16:08)
[2019-02-26] MEDS ORDERED: Acetaminophen IV 1,000 MG/100 ML INFUS..BTL ONE (16:12)
[2019-02-26] MEDS ORDERED: *HR* Rocuronium Bromide 50 MG/5 ML VIAL ONE (16:14)
[2019-02-26] MEDS ORDERED: Lidocaine -MPF 2% 2 ML VIAL ONE (16:14)
[2019-02-26] MEDS ORDERED: *HR* Propofol 200 MG/20 ML VIAL IVP ONE (16:14)
[2019-02-26] MEDS ORDERED: *HR* Midazolam HCl 2 MG/2 ML VIAL ONE (16:23)
[2019-02-26] MEDS ORDERED: EPHEDrine 50 MG/ML VIAL ONE (16:31)
[2019-02-26] MEDS ORDERED: Dexamethasone 4 MG/ML VIAL ONE (16:47)
[2019-02-26] MEDS ORDERED: *HR* FentaNYL (PF) 100 MCG/2 ML VIAL ONE (17:06)
[2019-02-26] MEDS ORDERED: *HR* Phenylephrine 10 MG/ML VIAL ONE (17:19)
[2019-02-26] MEDS ORDERED: *HR* HYDROMORPHONE 2 MG/ML VIAL ONE (21:11)
--- NOTE | 2019-02-26 22:38 | Operative Note ---
Date of procedure: 02/26/19 Pre-op diagnosis: Acute cholecystitis with cholelithiasis; S/P cholecystostomy Post-op diagnosis: same (with severe intraabdominal adhesions) Procedure: 1. Laparoscopy with extensive lysis of adhesions 2. Laparoscopic repair of enterotomy 3. Open cholecystectomy 4. Intraoperative cholangiogram Complications: none Surgeon: Araceli Mckee Was there an training program assistant present: Yes Support Manager: Tammie Harris Estimated blood loss (cc): 300 Specimen: gallbladder Condition: stable Disposition: PACU Procedure in Detail: This 63 year-old male with acute cholecystitis with cholelithiasis s/p cholecystostomy tube was taken to the operating room and placed in the supine position. The anterior abdominal wall is prepped and draped in the usual sterile fashion. Great care was taken to prep around his PEG and diaphragmatic stimulator. A 1-2 cm curvilinear incision is made in the infraumbilical area and subcutaneous tissue was dissected down to anterior rectus fascia. Fascia is grasped with a Devyn clamp, stay sutures were placed in the fascia is divided. Posterior rectus fascia and peritoneum were elevated and divided in the same manner. A Elva port is inserted. The patient is placed in reverse Trendelenburg position and rotated to the left.Exploration of the intraabdominal cavity reveals severe intraoperative adhesions in the RUQ. The gallbladder it not able to be visualized initially. Under direct visualization, x2 5 mm posts were inserted in careful left subcostal postitions. Care is taken to avoid dislodging the diaphragmatic pacemaker leads. Lysis of adhesions began. The AMBERLY between the colon and liver was technically demanding and time consuming. Omental adhesions are divided bluntly and sharply. A colotomy is made inadvertently in the hepatic flexure of the colon and it is repaired in layers laparoscopically. Eventually a significantly abnormal gallbladder is identified. The duodenum is strictly adherent to the gallbladder. Both sharp and blunt dissection is used to divide these adhsions. A serosal tear is identified on the duodenum. After several hours of lysis of adhesions laparoscopically, a decision is made to convert the cholecystectomy to open due to slow progress and better ability to repair the serosal tear in the duodeum without compromise to CBD. A left subcostal incision is made in the skin. Subcutaneous tissue is divided using electrocautery. The external and internal obliques and tranversus abdominus are divided using electrocautery. After the gallbladder is dissected from the liver bed, a subhepatic abscess is encountered and copious amounts of bile stained purulent fluid is suctioned. The gallbladder is grasped and dissected off the liver. It is also grasped and retracted in the lateral direction. The cystic duct was not easily identified. A tubular structure near what was thought to be the neck of the gallbladder was circumferentially dissected and ligated distally and then it tore. The proximal part could not be identified with confidence. Because of this and the extremely abnormal RUQ anatomy and difficult surgery, it is decided to perform a cholangiogram. The gallbladder is removed from the liver bed. The subhepatic abscess is drained. A choledochotomy is made. It is known that the cholangiocatheter is placed in the CBD duct as it is the only nonobliterated structure in the beatris hepatis. A cholangiogram is obtained. There is easy filling of the CBD, common hepatic duct and hepatic radicals. Easy filling of the duodenum is appreciated. There are no filling defects. When the cholangiogram is completed, the catheter is removed and the CBD rent is repair with vicryl and silk sutures. There is no leakage of bile. Copious irrigation is carried out in the RUQ. Hemostasis was perfected using electrocautery and 3 g of Vanessa. The bowel in the RUQ is inspected for any missed colotomy or enterotomy. None are appreciated. x2 10-flat CHIP drains are placed in Colón's pouch and the gallbladder fossa. The left subcostal incision is closed in layers using #1 looped PDS. The skin in closed with trish. The infraumbilical incsion is closed with 0-Vicryl on fascia and trish on skin. Sterile dressings are placed. The drains are sown into position with 3-0 vicryl. During the course of the operation the pt lost 300 cc of blood. He became transiently hypotensive so, 2 U PRBC of O neg was transfused. Pt is normotensive at the conclusion of surgery. Patient tolerated procedure and was taken to the ICU in good condition.
[2019-02-27] MEDS: Pantoprazole 40 MG VIAL IVP SCH ×2 (00:32→05:54)
[2019-02-27] MEDS: Ampicillin/Sulbactam 3,000 MG in 0.9 % Sodium Chloride Mini Bag 100 ML IVPB SCH ×5 (00:43→23:33)
[2019-02-27 04:44] LABS: Basophils % 0.1 %; Hematocrit 37.7 % (37.5-50.1); Hemoglobin 11.8 g/dL (12.9-16.9); Immature Granulocytes % 0.4 % (0-4); Lymphocytes # 0.9 K/mcL (0.6-4.6); Lymphocytes % 4.2 %; Mean Corpuscular HGB Conc 31.3 g/dL (31.6-35.5); Mean Corpuscular Volume 89.5 fL (83.0-100.0); Mean Platelet Volume 10.3 fL (9.4-12.4); Monocytes % 4.6 %; Platelet Count 578 K/mcL (140-400); Red Blood Count 4.21 M/mcL (4.19-5.50); Red Cell Distribution Width 14.7 % (11.5-14.5); Segmented Neutrophils % 90.7 %
[2019-02-27 04:53] LABS: White Blood Count 20.9 K/mcL (4.3-11.1)
[2019-02-27 05:05] LABS: Alanine Aminotransferase 182 Units/L (7-52); Albumin 2.7 g/dL (3.5-5.7); Alkaline Phosphatase 322 Units/L (34-104); Aspartate Amino Transferase 185 Units/L (13-39); BUN/Creatinine Ratio 52 (6-26); Bilirubin,Total 2.4 mg/dL (0.3-1.0); Blood Urea Nitrogen 26 mg/dL (8-23); Calcium 8.4 mg/dL (8.6-10.3); Carbon Dioxide 24 mEq/L (23-29); Chloride 109 mEq/L (98-107); Globulin 2.6 g/dL (2.4-3.5); Glucose 185 mg/dL (70-105); Osmolality,Calculated 304 (280-300); Sodium 142 mEq/L (136-145); Total Protein 5.3 g/dL (6.4-8.9); eGFR For African Americans > 60 (> 60); eGFR For Non-African Americans > 60 (> 60)
[2019-02-27] MEDS ORDERED: MetroNIDAZOLE 500 MG/100 ML 500 MG/100 ML BAG IVPB SCH (08:00)
--- NOTE | 2019-02-27 09:07 | Internal Med Progress Note ---
Hospitalist Progress Note - Encounter Date of Encounter: 02/27/19 Time of Encounter: 07:45 - Subjective Interval History: Patient feels well after his surgery. Other than some incisional pain, he has no complaints. 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 He has a diagphramatic stimulator in place and hopes to wean off ventilator in the future. Of concern is that patient has G+ cocci in blood. I added Vancomycin and Flagyl to his regimen. I will repeat daily blood cultures x 2 starting tomorrow. - Exam Vitals: Temp Pulse Resp BP Pulse Ox 98.4 F 112 21 122/82 96 02/27/19 07:14 02/27/19 06:00 02/27/19 06:00 02/27/19 06:00 02/27/19 06:00 Exam: General: NAD; pleasant, cooperative HEENT: dry mucosa; trahc/vent; neck supple Chest: CTA B, no WRR, RRR/IRR, HR 990-100's, no MTR, Abdomen: incisions clean, dry, incisional pain Ext: trace edema, contractures (mild); pulses 1-2+ Neuro: A&Ox3; unbale mirian move legs, + sensation Skin: warm and dry - Assessment and Plan (1) Acute cholecystitis due to biliary calculus Current Visit: Yes Status: Acute Assessment and Plan: 1. S/P cholecytectomy. 2. Post-op care per surgery. 3. Continue and broaden antibiotics given G+ sepsis/bacteremia. 4. Diet per surgery. (2) Sepsis Current Visit: Yes Status: Acute Assessment and Plan: 1. Continue antibiotics and add Vancomycin given G+ bacteria in blood. 2. Hemodynamically stable. 3. Infected source (GB) removed. 4. Daily blood culture x 3 total. 5. Patient has diaphragmatic stimulator in place. Follow blood cultures; if remain positive, may need to go back to [facility] and have it removed. (3) ALS (amyotrophic lateral sclerosis) Current Visit: Yes Status: Chronic Assessment and Plan: 1. Continue chronic home vent. 2. Follow up with [place] outpatient clinic. (4) HTN (hypertension) Current Visit: Yes Status: Chronic Assessment and Plan: 1. Monitor BP and resume/adjust home meds as appropriate. (5) DVT prophylaxis Current Visit: No Status: Acute Assessment and Plan: 1. EPCD's. 2. Add Heparin SQ tomorrow. Plan of Care Discussed with: other (MDR team, patient) Internal Medicine: Result - Labs CBC & Chem 7: 02/27/19 03:48 02/27/19 03:48 Labs: Short CBC 02/27/19 Range/Units 03:48 WBC 20.9 H D (4.3-11.1) K/mcL Hgb 11.8 L (12.9-16.9) g/dL Hct 37.7 (37.5-50.1) % Plt Count 578 H (140-400) K/mcL Neutrophils # 19.0 H (1.6-8.9) K/mcL BMP 02/27/19 03:48 Sodium 142 Potassium 4.0 Chloride 109 H Carbon Dioxide 24 BUN 26 H Creatinine 0.50 L Glucose 185 H Calcium 8.4 L Liver Function 02/27/19 Range/Units 03:48 Total Bilirubin 2.4 H (0.3-1.0) mg/dL AST 185 H (13-39) Units/L ALT 182 H (7-52) Units/L Alkaline Phosphatase 322 H (34-104) Units/L Albumin 2.7 L (3.5-5.7) g/dL - ABG Interpretation ABG results: PT/INR, D-dimer PT 17.2 Seconds (9.4-12.1) H 02/26/19 05:36 - Impressions Impressions Cholangiogram,Operative 02/26/19 22:32 IMPRESSION: Intraoperative cholangiogram, as detailed above. Please see operative report for further details. D/ / Se Garcia / Se Garcia Interpreting Provider: Se Garcia Consult Discharge Plan - Plan Instructions: Laparoscopic Cholecystectomy (DC) Additional Instructions: General Surgical Discharge Instructions 1. No pushing, pulling, or lifting greater than 15 lbs for 4 weeks. 2. You may remove your dressings and shower beginning today, but no tub baths, soaking, or swimming for 2 weeks. 3. No driving for one weeks unless otherwise specified and then you may resume driving when you are off narcotics and are safe to react in a car. 4. Apply ice 20 minutes every hour that you are awake to your abdomen and Take 650 mg acetaminophen/Tylenol every 8 hours for discomfort. If this does not relieve discomfort, you may take the as needed Percocet. Eat a small snack with pain medication as this will help reduce the risk of nausea. Take narcotics as directed. Do not take more narcotics then directed and do not share your narcotics with any other person. Do not drink alcohol while on narcotics. You can take the Zofran/ondansetron if needed for nausea or with a dose of narcotics to prevent nausea. Do not take more than 4 Grams of Tylenol daily. 5. Take stool softeners (Colace) or a water based laxative (Miralax) while taking narcotics. You may hold for loose stools. 6. Report any fevers greater than 100.5F, increase abdominal discomfort, drainage that looks like pus, increased redness or pain at the surgical site, or any vomiting. 7. Report any pain in the calves, shortness of breath, or rapid heartbeat. 8. Follow-up in the office as directed. 9. If you were prescribed antibiotics, do not stop them without talking to your provider. Referrals: Lidia Delvalle, [employer]NE[employer]ING MACHINE OPERATOR [Advanced Practice Nurse] - 03/19/19 1:30 pm [facility] [Primary Care Provider[facility] - (2) Sepsis Qualifiers: Sepsis type: sepsis due to unspecified organism Sepsis acute organ dysfunction status: without acute organ dysfunction Qualified Code(s): A41.9 - Sepsis, unspecified organism (4) HTN (hypertension) Qualifiers: Hypertension type: essential hypertension Qualified Code(s): I10 - Essential (primary) hypertension
[2019-02-27] MEDS ORDERED: 0.9 % Sodium Chloride 1,000 ML IVC SCH ×2 (09:30→11:43)
[2019-02-27] MEDS ORDERED: *HR* FentaNYL (PF) 100 MCG/2 ML VIAL IVP PRN (09:30)
[2019-02-27] MEDS: Ipratropium/Albuterol Neb 3 ML IH SCH ×2 (10:45→21:57)
[2019-02-27] MEDS ORDERED: Naloxone 0.4 MG/ML INJ IVP PRN (11:43)
[2019-02-27] MEDS ORDERED: *HR* Metoprolol 5 MG/5 ML VIAL IVP PRN (11:43)
[2019-02-27] MEDS ORDERED: Ondansetron 4 MG/2 ML VIAL IVP PRN (11:43)
[2019-02-27] MEDS: *HR* FentaNYL (PF) 100 MCG/2 ML VIAL IVP PRN ×2 (12:18→19:51)
--- NOTE | 2019-02-27 13:31 | AcuteCareSurgery Progress Note ---
Date of Encounter: 02/27/19 Time of Encounter: 13:26 - Assessment and Plan (1) Acute cholecystitis due to biliary calculus Current Visit: Yes Status: Acute 63M POD #1 s/p lap converted to open; pain improved; afebrile; mildy tachycardic likely related to pain diet as tolerated; start with clears, then advance as tolerated activity as tolerated PO pain meds drains to suction cares per primary team will cont to follow Subjective Patient reports: no new complaints, feels better, still having pain, afebrile Objective Vital Signs - Last 8 Hours Temp Pulse Resp BP Pulse Ox 02/27/19 12:00 130 24 120/76 97 02/27/19 10:46 24 97 02/27/19 10:40 97.4 F L 02/27/19 10:00 112 18 118/94 96 02/27/19 08:00 108 26 112/80 96 02/27/19 07:14 98.4 F 02/27/19 06:00 112 21 122/82 96 Intake and Output 02/26/19 02/27/19 02/27/19 23:59 07:59 15:59 Intake Total 200 / 550 350 / 550 Output Total 300 / 1100 450 / 585 135 / 585 Balance -300 / -1000 -250 / -35 215 / -35 Intake: IV Fluids 200 / 550 350 / 550 Unasyn 3,000 MG In 0.9 % Sodium 200 / 200 Chloride (Mini-Bag +) 100 ML @ 200 mls/hr IVPB Q6HR BLANCHE Rx#: [id number] Flagyl Premix 500 MG/100 ML 500 100 / 100 mg In 100 ml @ 100 mls/hr IVPB Q8HR [facility]ANC[facility] Rx#:[id number] Vancocin 1,250 MG In 0.9 % 250 / 250 Sodium Chloride 250 ML @ 167 mls/hr IVPB Q12H [facility] Rx#: [id number] Output: Estimated Blood Loss 300 / 300 Catheter 300 / 375 75 / 375 Gastric Drainage 0 / 0 0 / 0 Wound Drainage 150 / 210 60 / 210 RIGHT JP1 90 / 130 40 / 130 RIGHT JP2 60 / 80 20 / 80 Other: Weight 79.1 kg Patient Weight 02/27/19 23:59 Weight 79.1 kg - General physical appearance no distress - Respiratory normal expansion, normal respiratory effort - Cardiovascular Cardiovascular exam: Present: RRR - Abdomen Abdomen: Present: soft, tender (appropriately tender) - Incision Incision: Present: clean and dry - Neurologic CN 2-12 grossly intact - Musculoskeletal normal posture - Psychiatric oriented to time, oriented to person, oriented to place - Labs 02/27/19 03:48 02/27/19 03:48 Diabetes panel 02/27/19 Range/Units 03:48 Sodium 142 (136-145) mEq/L Potassium 4.0 (3.5-5.1) mEq/L Chloride 109 H (98-107) mEq/L Carbon Dioxide 24 (23-29) mEq/L BUN 26 H (8-23) mg/dL Creatinine 0.50 L (0.70-1.30) mg/dL Glucose 185 H (70-105) mg/dL Calcium 8.4 L (8.6-10.3) mg/dL AST 185 H (13-39) Units/L ALT 182 H (7-52) Units/L Alkaline Phosphatase 322 H (34-104) Units/L Albumin 2.7 L (3.5-5.7) g/dL Calcium panel 02/27/19 Range/Units 03:48 Calcium 8.4 L (8.6-10.3) mg/dL Albumin 2.7 L (3.5-5.7) g/dL Pituitary panel 02/27/19 Range/Units 03:48 Sodium 142 (136-145) mEq/L Potassium 4.0 (3.5-5.1) mEq/L Chloride 109 H (98-107) mEq/L Carbon Dioxide 24 (23-29) mEq/L BUN 26 H (8-23) mg/dL Creatinine 0.50 L (0.70-1.30) mg/dL Glucose 185 H (70-105) mg/dL Calcium 8.4 L (8.6-10.3) mg/dL Adrenal panel 02/27/19 Range/Units 03:48 Sodium 142 (136-145) mEq/L Potassium 4.0 (3.5-5.1) mEq/L Chloride 109 H (98-107) mEq/L Carbon Dioxide 24 (23-29) mEq/L BUN 26 H (8-23) mg/dL Creatinine 0.50 L (0.70-1.30) mg/dL Glucose 185 H (70-105) mg/dL Calcium 8.4 L (8.6-10.3) mg/dL Total Bilirubin 2.4 H (0.3-1.0) mg/dL AST 185 H (13-39) Units/L ALT 182 H (7-52) Units/L Alkaline Phosphatase 322 H (34-104) Units/L Albumin 2.7 L (3.5-5.7) g/dL Consult Discharge Plan - Plan Instructions: Laparoscopic Cholecystectomy (DC) Additional Instructions: General Surgical Discharge Instructions 1. No pushing, pulling, or lifting greater than 15 lbs for 4 weeks. 2. You may remove your dressings and shower beginning today, but no tub baths, soaking, or swimming for 2 weeks. 3. No driving for one weeks unless otherwise specified and then you may resume driving when you are off narcotics and are safe to react in a car. 4. Apply ice 20 minutes every hour that you are awake to your abdomen and Take 650 mg acetaminophen/Tylenol every 8 hours for discomfort. If this does not relieve discomfort, you may take the as needed Percocet. Eat a small snack with pain medication as this will help reduce the risk of nausea. Take narcotics as directed. Do not take more narcotics then directed and do not share your n arcotics with any other person. Do not drink alcohol while on narcotics. You can take the Zofran/ondansetron if needed for nausea or with a dose of narcotics to prevent nausea. Do not take more than 4 Grams of Tylenol daily. 5. Take stool softeners (Colace) or a water based laxative (Miralax) while taking narcotics. You may hold for loose stools. 6. Report any fevers greater than 100.5F, increase abdominal discomfort, drainage that looks like pus, increased redness or pain at the surgical site, or any vomiting. 7. Report any pain in the calves, shortness of breath, or rapid heartbeat. 8. Follow-up in the office as directed. 9. If you were prescribed antibiotics, do not stop them without talking to your provider. Referrals: Lidia Delvalle CNP [Advanced Practice Nurse] - 03/19/19 1:30 pm [facility] [Primary Care Provider[facility] -
--- NOTE | 2019-02-27 15:45 | Electrocardiograph Report ---
[address] [place] [address] Test Date: 2019-02-25 Pat Name: Michael Modi Department: EXAM11 Room: [facility] Gender: M [employer] Physician: : [id number] Requested By: Chloé Hernandez Order Number: [id number] Reading MD: Sánchez Foster Measurements Intervals [place] Rate: 117 P: VT: QRS: 32 QRSD: 155 T: -21 QT: 322 QTc: 450 Interpretive Statements Sinus rhythm Possible inferior infarct, age undetermined Significant artifact Consider repeat ECG Electronically Signed On 02-27-2019 15:43:03 EDT by Sánchez Foster
[2019-02-27] MEDS: MetroNIDAZOLE 500 MG/100 ML 500 MG/100 ML BAG IVPB SCH ×2 (16:08→23:30)
[2019-02-27] MEDS ORDERED: Simethicone 80 MG TAB.CHEW PO PRN (22:59)
[2019-02-27] MEDS ORDERED: Ondansetron ODT 4 MG TAB.RAPDIS PO PRN (22:59)
[2019-02-27] MEDS: *HR* LORazepam 1 MG TABLET PO PRN (23:29)
[2019-02-28 01:19] LABS: Basophils % 0.2 %; Eosinophils % 0.1 %; Hematocrit 27.1 % (37.5-50.1); Immature Granulocytes % 0.3 % (0-4); Lymphocytes # 1.1 K/mcL (0.6-4.6); Lymphocytes % 11.4 %; Mean Corpuscular Volume 90.3 fL (83.0-100.0); Monocytes # 0.7 K/mcL (0.0-1.3); Monocytes % 6.9 %; Neutrophils # 8.1 K/mcL (1.6-8.9); Platelet Count 395 K/mcL (140-400); Red Cell Distribution Width 14.5 % (11.5-14.5); Segmented Neutrophils % 81.1 %
[2019-02-28 01:23] LABS: Hemoglobin 8.4 g/dL (12.9-16.9)
[2019-02-28 01:28] LABS: INR 1.6; Prothrombin Time 18.2 Seconds (9.4-12.1)
[2019-02-28 01:31] LABS: Activated Partial Thrombo Time 33.9 Seconds (26.0-36.0)
[2019-02-28 01:36] LABS: Alanine Aminotransferase 106 Units/L (7-52); Albumin 2.4 g/dL (3.5-5.7); Alkaline Phosphatase 240 Units/L (34-104); Aspartate Amino Transferase 55 Units/L (13-39); BUN/Creatinine Ratio 113 (6-26); Bilirubin,Total 1.4 mg/dL (0.3-1.0); Blood Urea Nitrogen 26 mg/dL (8-23); Calcium 7.9 mg/dL (8.6-10.3); Carbon Dioxide 22 mEq/L (23-29); Chloride 111 mEq/L (98-107); Globulin 2.3 g/dL (2.4-3.5); Glucose 116 mg/dL (70-105); Osmolality,Calculated 300 (280-300); Potassium 2.7 mEq/L (3.5-5.1); Sodium 142 mEq/L (136-145); Total Protein 4.7 g/dL (6.4-8.9); eGFR For African Americans > 60 (> 60); eGFR For Non-African Americans > 60 (> 60)
[2019-02-28] MEDS ORDERED: Potassium Chloride 40 MEQ, Lidocaine 1% 2 ML in 0.9 % Sodium Chloride 500 ML IVPB ONE (02:12)
[2019-02-28] MEDS: Ampicillin/Sulbactam 3,000 MG in 0.9 % Sodium Chloride Mini Bag 100 ML IVPB SCH (05:42)
[2019-02-28] MEDS ORDERED: *HR* Heparin 5,000 UNIT/ML VIAL SQ SCH ×2 (08:00)
--- NOTE | 2019-02-28 08:16 | Internal Med Progress Note ---
Hospitalist Progress Note - Encounter Date of Encounter: 02/28/19 Time of Encounter: 08:15 - Subjective Interval History: Pt reports his pain is well controlled, and that he actually had a small BM this morning. Denies SOB or productive cough different than usual, and no issues with trach. No CP or N/V. Does have Martinez in and is OK with removal. - Exam Vitals: Temp Pulse Resp BP Pulse Ox 99.1 F 105 20 141/84 97 02/28/19 07:58 02/28/19 07:58 02/28/19 07:58 02/28/19 07:58 02/28/19 07:58 Exam: General: NAD, good eye contact, relatively well appearing, chronic trach Thoracic: Mech breath sounds b/l, no wheezing or crackles Cardio: Normal S1 and S2, regular rate and rhythm Abdomen: Soft, nontender, nondistended. Does have RUQ incision which is dressed, has tube in place. Also has CHIP drain. Also has G-tube. Extremities: Warm, well perfused. DP pulses 2+ b/l. Does have mild edema b/l LE. Skin: Scattered areas of irritation. Abdominal incisions. Neuro: Awake, fully oriented. Speech fluent. Mild contractures and significantly reduced strength b/l LE - Assessment and Plan (1) Acute cholecystitis due to biliary calculus Current Visit: Yes Status: Acute - Summary of Assessment and Plan Summary of Assessment and Plan: Michael Modi is a 63 M w hx ALS s/p trach who p/w abd pain, fever, CT showing cholecystitis and pneumoperitoneum, taken for operative cholecystectomy 02/[address] Joni Mckee. Acute cholecystitis c/b subhepatic abscess: s/p open cholecystectomy 02/26, doing relatively well post op with little pain. Does have CHIP drains in place with scant drainage. Per GenSurg, concerned for skin/soft tissue infection potential and recommend broad coverage to include PsA at this time. 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, will continue eliquis HTN: holding home antiHTN meds for now GERD: PPI PPx: eliquis Tele: can d/c Activity: PT/OT to assist with assessment of status and if able to transfer FEN: per GenSurg and is on clears today, no MIVF Lines: [facility]: [facility]: patient requires inpatient eval and management at this time, anticipate 2-3 days, will be homegoing Internal Medicine: Result - Labs CBC & Chem 7: 02/28/19 00:59 02/28/19 08:44 Labs: Short CBC 02/28/19 Range/Units 00:59 WBC 10.0 D (4.3-11.1) K/mcL Hgb 8.4 L D (12.9-16.9) g/dL Hct 27.1 L (37.5-50.1) % Plt Count 395 (140-400) K/mcL Neutrophils # 8.1 (1.6-8.9) K/mcL BMP 02/28/19 00:59 Sodium 142 Potassium 2.7 L D Chloride 111 H Carbon Dioxide 22 L BUN 26 H Creatinine 0.23 L Glucose 116 H Calcium 7.9 L Liver Function 02/28/19 Range/Units 00:59 Total Bilirubin 1.4 H (0.3-1.0) mg/dL AST 55 H (13-39) Units/L ALT 106 H (7-52) Units/L Alkaline Phosphatase 240 H (34-104) Units/L Albumin 2.4 L (3.5-5.7) g/dL - ABG Interpretation ABG results: PT/INR, D-dimer PT 18.2 Seconds (9.4-12.1) H 02/28/19 00:59 Consult Discharge Plan - Plan Instructions: Laparoscopic Cholecystectomy (DC) Additional Instructions: General Surgical Discharge Instructions 1. No pushing, pulling, or lifting greater than 15 lbs for 4 weeks. 2. You may remove your dressings and shower beginning today, but no tub baths, soaking, or swimming for 2 weeks. 3. No driving for one weeks unless otherwise specified and then you may resume driving when you are off narcotics and are safe to react in a car. 4. Apply ice 20 minutes every hour that you are awake to your abdomen and Take 650 mg acetaminophen/Tylenol every 8 hours for discomfort. If this does not relieve discomfort, you may take the as needed Percocet. Eat a small snack with pain medication as this will help reduce the risk of nausea. Take narcotics as directed. Do not take more narcotics then directed and do not share your narcotics with any other person. Do not drink alcohol while on narcotics. You ca n take the Zofran/ondansetron if needed for nausea or with a dose of narcotics to prevent nausea. Do not take more than 4 Grams of Tylenol daily. 5. Take stool softeners (Colace) or a water based laxative (Miralax) while taking narcotics. You may hold for loose stools. 6. Report any fevers greater than 100.5F, increase abdominal discomfort, drainage that looks like pus, increased redness or pain at the surgical site, or any vomiting. 7. Report any pain in the calves, shortness of breath, or rapid heartbeat. 8. Follow-up in the office as directed. 9. If you were prescribed antibiotics, do not stop them without talking to your provider. Referrals: Lidia Delvalle CNP [Advanced Practice Nurse] - 03/19/19 1:30 pm [facility] [Primary Care Provider[facility] - (Patient is from [place] and is going to [place])
[2019-02-28] MEDS ORDERED: [UNRECOGNIZED DRUG - OTHER] PO SCH (09:00)
[2019-02-28] MEDS ORDERED: Pantoprazole 40 MG VIAL IVP SCH ×2 (09:00)
[2019-02-28] MEDS: Multivit/Ca/Min/Fe/FA 1 TAB TABLET PO SCH (09:04)
[2019-02-28] MEDS: Apixaban 5 MG TABLET PO SCH ×2 (09:04→20:54)
[2019-02-28] MEDS: Ascorbic Acid 500 MG TABLET PO SCH (09:06)
[2019-02-28] MEDS: Cholecalciferol (D-3) 1,000 UNIT (25MCG) TABLET PO SCH (09:06)
[2019-02-28] MEDS: *HR* FentaNYL (PF) 100 MCG/2 ML VIAL IVP PRN ×3 (09:14→20:53)
--- NOTE | 2019-02-28 09:39 | AcuteCareSurgery Progress Note ---
Date of Encounter: 02/28/19 Time of Encounter: 08:00 - Assessment and Plan (1) Acute cholecystitis due to biliary calculus Current Visit: Yes Status: Acute POD#2 cholecystectomy with IOC. Maintain CHIP for 4-6 weeks or until no drainage/no bile. Pt will be DC'd to home with drains in place. Pt has HH established and who can maintain CHIP management after DC. Incision is erythematous without drainage. Pt is at high risk for SSI due to subhepatic abscess. Will add Merem IV for psuedomonal coverage and follow closely. PEG to stay in place until pt recovered from lisa. This will be removed outpt. Maintain clears due to intraoperative colotomy with repair. Allow for healing. Advance diet on POD#3 or 4. PT/OT consults today. (2) Chronic respiratory failure Current Visit: Yes Status: Acute Qualifiers: Qualified Code(s): J96.10 - Chronic respiratory failure, unspecified whether with hypoxia or hypercapnia (3) HTN (hypertension) Current Visit: No Status: Chronic Qualifiers: Hypertension type: essential hypertension Qualified Code(s): I10 - Essential (primary) hypertension (4) Subhepatic abscess Current Visit: Yes Status: Acute S/P drainage. On IV abx. Subjective Patient reports: no new complaints, feels better, pain is less, tolerating liquids well, flatus, bowel movement, afebrile Narrative: Pt is POD#2 cholecystectomy with IOC. He reports feeling much better. He is tolerating a liquid diet. He reports pain is controlled. +flatus, +BM. Not much activity. Objective Vital Signs - Last 8 Hours Temp Pulse Resp BP Pulse Ox 02/28/19 07:58 99.1 F 105 20 141/84 97 02/28/19 04:09 98.9 F 105 22 132/86 96 Intake and Output 02/27/19 02/28/19 02/28/19 23:59 07:59 15:59 Intake Total 1450 / 2100 500 / 500 Output Total 840 / 1595 350 / 350 Balance 610 / 505 150 / 150 Intake: IV Fluids 1450 / 2100 300 / 300 0.9 % Sodium Chloride 1,000 ML 1000 / 1000 @ 100 mls/hr IVC .Q10H [facility] Rx#: [id number] Unasyn 3,000 MG In 0.9 % Sodium 100 / 200 200 / 200 Chloride (Mini-Bag +) 100 ML @ 200 mls/hr IVPB Q6HR [facility] Rx#: [id number] Flagyl Premix 500 MG/100 ML 500 100 / 100 100 / 100 mg In 100 ml @ 100 mls/hr IVPB Q8HR [facility] Rx#:[id number] Vancocin 1,250 MG In 0.9 % 250 / 250 Sodium Chloride 250 ML @ 167 mls/hr IVPB Q12H [facility] Rx#: [id number] Oral 200 / 200 Output: Gastric Tube Lavage Amount 800 / 800 0 / 0 Left Upper Quadrant 800 / 800 0 / 0 Catheter 0 / 475 300 / 300 Urethral (Martinez) 0 / 0 Wound Drainage 40 / 320 50 / 50 RIGHT JP1 20 / 180 25 / 25 RIGHT JP2 20 / 140 25 / 25 Other: Stool Size Small Moderate Stool Consistency soft Stool Characteristics Pasty Normal for Patient Stool Color Black Brown Green # Bowel Movements 1 - General physical appearance no distress, moderate pain (minimal pain as expected post-op), other (no jaundice) - Eyes other (no icterus), PERRL, normal ocular movement - ENT normal mucosa, no congestion - Neck Neck exam: trachea midline, other (trach in place) - Respiratory normal respiratory effort, clear to auscultation, other (Trach is in place and pt on portable vent) - Cardiovascular Cardiovascular exam: Present: RRR. Absent: JVD - Abdomen Abdomen: Present: bowel sounds present, soft, tender (as expected post-op) Additional Comments: 1 of 2 CHIP with scantly bile-tinged serosanguinous output. PEG in place and clamped. Diaphragmatic pacemaker is in place. - Incision Incision: Present: inflamed (no drainage ), intact, erythema. Absent: draining, purulent - Neurologic CN 2-12 grossly intact, normal coordination - Musculoskeletal normal posture - Psychiatric oriented to time, oriented to person, oriented to place - Labs 02/28/19 00:59 02/28/19 08:44 Diabetes panel 02/28/19 02/28/19 Range/Units 00:59 08:44 Sodium 142 (136-145) mEq/L Potassium 2.7 L D 3.2 L (3.5-5.1) mEq/L Chloride 111 H (98-107) mEq/L Carbon Dioxide 22 L (23-29) mEq/L BUN 26 H (8-23) mg/dL Creatinine 0.23 L (0.70-1.30) mg/dL Glucose 116 H (70-105) mg/dL Calcium 7.9 L (8.6-10.3) mg/dL AST 55 H (13-39) Units/L ALT 106 H (7-52) Units/L Alkaline Phosphatase 240 H (34-104) Units/L Albumin 2.4 L (3.5-5.7) g/dL Calcium panel 02/28/19 Range/Units 00:59 Calcium 7.9 L (8.6-10.3) mg/dL Albumin 2.4 L (3.5-5.7) g/dL Pituitary panel 02/28/19 02/28/19 Range/Units 00:59 08:44 Sodium 142 (136-145) mEq/L Potassium 2.7 L D 3.2 L (3.5-5.1) mEq/L Chloride 111 H (98-107) mEq/L Carbon Dioxide 22 L (23-29) mEq/L BUN 26 H (8-23) mg/dL Creatinine 0.23 L (0.70-1.30) mg/dL Glucose 116 H (70-105) mg/dL Calcium 7.9 L (8.6-10.3) mg/dL Adrenal panel 02/28/19 02/28/19 Range/Units 00:59 08:44 Sodium 142 (136-145) mEq/L Potassium 2.7 L D 3.2 L (3.5-5.1) mEq/L Chloride 111 H (98-107) mEq/L Carbon Dioxide 22 L (23-29) mEq/L BUN 26 H (8-23) mg/dL Creatinine 0.23 L (0.70-1.30) mg/dL Glucose 116 H (70-105) mg/dL Calcium 7.9 L (8.6-10.3) mg/dL Total Bilirubin 1.4 H (0.3-1.0) mg/dL AST 55 H (13-39) Units/L ALT 106 H (7-52) Units/L Alkaline Phosphatase 240 H (34-104) Units/L Albumin 2.4 L (3.5-5.7) g/dL Consult Discharge Plan - Plan Instructions: Laparoscopic Cholecystectomy (DC) Additional Instructions: General Surgical Discharge Instructions 1. No pushing, pulling, or lifting greater than 15 lbs for 4 weeks. 2. You may remove your dressings and shower beginning today, but no tub baths, soaking, or swimming for 2 weeks. 3. No driving for one weeks unless otherwise specified and then you may resume driving when you are off narcotics and are safe to react in a car. 4. Apply ice 20 minutes every hour that you are awake to your abdomen and Take 650 mg acetaminophen/Tylenol every 8 hours for discomfort. If this does not relieve discomfort, you may take the as needed Percocet. Eat a small snack with pain medication as this will help reduce the risk of nausea. Take narcotics as directed. Do not take more narcotics then directed and do not share your narcotics with any other person. Do not drink alcohol while on narcotics. You can take the Zofran/ondansetron if needed for nausea or with a dose of narcotics to prevent nausea. Do not take more than 4 Grams of Tylenol daily. 5. Take stool softeners (Colace) or a water based laxative (Miralax) while taking narcotics. You may hold for loose stools. 6. Report any fevers greater than 100.5F, increase abdominal discomfort, drainage that looks like pus, increased redness or pain at the surgical site, or any vomiting. 7. Report any pain in the calves, shortness of breath, or rapid heartbeat. 8. Follow-up in the office as directed. 9. If you were prescribed antibiotics, do not stop them without talking to your provider. Referrals: Lidia Delvalle CNP [Advanced Practice Nurse] - 03/19/19 1:30 pm [facility]Primary Care Provider[facility] -
[2019-02-28] MEDS: Ipratropium/Albuterol Neb 3 ML IH SCH ×2 (09:57→22:45)
[2019-02-28] MEDS ORDERED: Ampicillin 2 GM in 0.9 % Sodium Chloride Mini Bag 100 ML IVPB SCH (10:00)
[2019-02-28] MEDS ORDERED: Meropenem 1,000 MG in Water for inj. (sterile) 10 ML IVP SCH (16:00)
[2019-02-28] MEDS ORDERED: Aminoglycoside Consult 1 EACH MC ONE (16:04)
[2019-02-28] MEDS: Piperacillin/Tazobactam 3.375 GM in 0.9 % Sodium Chloride Mini Bag 100 ML IVPB SCH ×2 (16:44→23:10)
[2019-02-28] MEDS: *HR* LORazepam 1 MG TABLET PO PRN (23:10)
[2019-03-01 02:43] LABS: Basophils % 0.4 %; Eosinophils # 0.3 K/mcL (0.0-0.6); Hematocrit 25.9 % (37.5-50.1); Hemoglobin 8.2 g/dL (12.9-16.9); Immature Granulocytes % 0.5 % (0-4); Lymphocytes # 1.3 K/mcL (0.6-4.6); Lymphocytes % 14.8 %; Mean Corpuscular HGB Conc 31.7 g/dL (31.6-35.5); Mean Corpuscular Hemoglobin 28.2 pg (28.0-33.3); Mean Platelet Volume 9.9 fL (9.4-12.4); Monocytes # 0.5 K/mcL (0.0-1.3); Monocytes % 5.8 %; Neutrophils # 6.4 K/mcL (1.6-8.9); Platelet Count 379 K/mcL (140-400); Red Blood Count 2.91 M/mcL (4.19-5.50); Red Cell Distribution Width 14.4 % (11.5-14.5); Segmented Neutrophils % 75.5 %; White Blood Count 8.5 K/mcL (4.3-11.1)
[2019-03-01 03:03] LABS: Alanine Aminotransferase 88 Units/L (7-52); Albumin 2.2 g/dL (3.5-5.7); Alkaline Phosphatase 348 Units/L (34-104); Aspartate Amino Transferase 44 Units/L (13-39); BUN/Creatinine Ratio 86 (6-26); Bilirubin,Total 1.1 mg/dL (0.3-1.0); Blood Urea Nitrogen 19 mg/dL (8-23); Calcium 7.5 mg/dL (8.6-10.3); Carbon Dioxide 22 mEq/L (23-29); Chloride 111 mEq/L (98-107); Globulin 2.3 g/dL (2.4-3.5); Glucose 93 mg/dL (70-105); Osmolality,Calculated 292 (280-300); Potassium 3.2 mEq/L (3.5-5.1); Sodium 140 mEq/L (136-145); Total Protein 4.5 g/dL (6.4-8.9); eGFR For African Americans > 60 (> 60); eGFR For Non-African Americans > 60 (> 60)
--- NOTE | 2019-03-01 07:43 | Internal Med Progress Note ---
Hospitalist Progress Note - Encounter Date of Encounter: 03/01/19 Time of Encounter: 07:42 - Subjective Interval History: Patient feels good today, denies acute issues, says his abd is not hurting, no fevers, is passing gas, no CP or palpitations, no SOB or cough, no N/V. - Exam Vitals: Temp Pulse Resp BP Pulse Ox 98.4 F 97 27 139/81 97 03/01/19 06:31 03/01/19 06:31 03/01/19 06:31 03/01/19 06:31 03/01/19 06:31 Exam: General: NAD, good eye contact, relatively well appearing, chronic trach Thoracic: Mech breath sounds b/l, no wheezing or crackles Cardio: Normal S1 and S2, regular rate and rhythm Abdomen: Soft, nontender, nondistended. Does have RUQ incision which is dressed, has tube in place. Also has CHIP drain. Also has G-tube. Extremities: Warm, well perfused. DP pulses 2+ b/l. Does have mild edema b/l LE. Skin: Scattered areas of irritation. Abdominal incisions. Neuro: Awake, fully oriented. Speech fluent. Mild contractures and significantly reduced strength b/l LE - Assessment and Plan (1) Acute cholecystitis due to biliary calculus Current Visit: Yes Status: Acute - Summary of Assessment and Plan Summary of Assessment and Plan: Michael Modi is a 63 M w hx ALS s/p trach who p/w abd pain, fever, CT showing cholecystitis and pneumoperitoneum, taken for operative cholecystectomy 02/[address] Joni Mckee. Acute cholecystitis c/b subhepatic abscess: s/p open cholecystectomy 02/26, doing relatively well post op with little pain. Does have CHIP drains in place with scant drainage. Per GenSurg, concerned for skin/soft tissue infection potential and recommend broad coverage to include PsA at this time. - Zosyn q8h until tomorrow and re-eval surgical site daily - diet per GenSurg - pain is well controlled Enterococcus bacteremia: of note, does have diaphragmatic stimulator implanted which could become infected. TTE without vegetations. - will plan to de-escalate from broad coverage above to ampicillin to complete 14d iv abx - repeat BCx remain clear PE: in recent past, will continue eliquis HTN: holding home antiHTN meds for now GERD: PPI PPx: eliquis Tele: no Activity: PT/OT to assist with assessment of status and if able to transfer FEN: per GenSurg Lines: PIV, plan for EPIV Consults: GenSurg Code: Full Dispo: patient requires inpatient eval and management at this time, anticipate d/c Monday, will be homegoing w for IV abx Internal Medicine: Result - Labs CBC & Chem 7: 03/01/19 02:12 03/01/19 02:12 Labs: Short CBC 03/01/19 Range/Units 02:12 WBC 8.5 (4.3-11.1) K/mcL Hgb 8.2 L (12.9-16.9) g/dL Hct 25.9 L (37.5-50.1) % Plt Count 379 (140-400) K/mcL Neutrophils # 6.4 (1.6-8.9) K/mcL BMP 02/28/19 03/01/19 08:44 02:12 Sodium 140 Potassium 3.2 L 3.2 L Chloride 111 H Carbon Dioxide 22 L BUN 19 Creatinine 0.22 L Glucose 93 Calcium 7.5 L Liver Function 03/01/19 Range/Units 02:12 Total Bilirubin 1.1 H (0.3-1.0) mg/dL AST 44 H (13-39) Units/L ALT 88 H (7-52) Units/L Alkaline Phosphatase 348 H (34-104) Units/L Albumin 2.2 L (3.5-5.7) g/dL - ABG Interpretation ABG results: PT/INR, D-dimer PT 18.2 Seconds (9.4-12.1) H 02/28/19 00:59 Consult Discharge Plan - Plan Instructions: Laparoscopic Cholecystectomy (DC) Additional Instructions: General Surgical Discharge Instructions 1. No pushing, pulling, or lifting greater than 15 lbs for 4 weeks. 2. You may remove your dressings and shower beginning today, but no tub baths, soaking, or swimming for 2 weeks. 3. No driving for one weeks unless otherwise specified and then you may resume driving when you are off narcotics and are safe to react in a car. 4. Apply ice 20 minutes every hour that you are awake to your abdomen and Take 650 mg acetaminophen/Tylenol every 8 hours for discomfort. If this does not relieve discomfort, you may take the as needed Percocet. Eat a small snack with pain medication as this will help reduce the risk of nausea. Take narcotics as directed. Do not take more narcotics then directed and do not share your narcotics with any other person. Do not drink alcohol while on narcotics. You can take the Zofran/ondansetron if needed for nausea or with a dose of narcotics to prevent nausea. Do not take more than 4 Grams of Tylenol daily. 5. Take stool softeners (Colace) or a water based laxative (Miralax) while andie ing narcotics. You may hold for loose stools. 6. Report any fevers greater than 100.5F, increase abdominal discomfort, drainage that looks like pus, increased redness or pain at the surgical site, or any vomiting. 7. Report any pain in the calves, shortness of breath, or rapid heartbeat. 8. Follow-up in the office as directed. 9. If you were prescribed antibiotics, do not stop them without talking to your provider. Referrals: Lidia Delvalle CNP [Advanced Practice Nurse] - 03/19/19 1:30 pm [facility] [Primary Care Provider[facility] - (Patient is Home care they see the patient every week, no PCP appointment needed per the [facility])
[2019-03-01] MEDS: Ascorbic Acid 500 MG TABLET PO SCH (08:25)
[2019-03-01] MEDS: Multivit/Ca/Min/Fe/FA 1 TAB TABLET PO SCH (08:25)
[2019-03-01] MEDS: Cholecalciferol (D-3) 1,000 UNIT (25MCG) TABLET PO SCH (08:27)
[2019-03-01] MEDS: Piperacillin/Tazobactam 3.375 GM in 0.9 % Sodium Chloride Mini Bag 100 ML IVPB SCH ×2 (08:27→16:01)
[2019-03-01] MEDS: Apixaban 5 MG TABLET PO SCH ×2 (08:27→20:17)
--- NOTE | 2019-03-01 08:36 | AcuteCareSurgery Progress Note ---
Date of Encounter: 03/01/19 Time of Encounter: 08:33 - Assessment and Plan (1) Acute cholecystitis due to biliary calculus Current Visit: Yes Status: Acute s/p Lap to open cholecystectomy. Continue with antibiotics. Tolerating clears, ok to slowly advance to fulls. Subjective Patient reports: other (Patient denies any nausea or vomiting. Tolerating pain with pain medication.) Objective Vital Signs - Last 8 Hours Temp Pulse Resp BP Pulse Ox 03/01/19 06:31 98.4 F 97 27 139/81 97 03/01/19 03:21 98.9 F 88 21 123/79 95 Intake and Output 02/28/19 03/01/19 03/01/19 23:59 07:59 15:59 Intake Total 100 / 600 Output Total 215 / 565 173 / 173 Balance -115 / 35 -173 / -173 Intake: IV Fluids 100 / 400 Zosyn 3.375 GM In 0.9 % Sodium 100 / 100 Chloride (Mini-Bag +) 100 ML @ 25 mls/hr IVPB Q8HR [facility] Rx#: [id number] Output: Urine 150 / 150 150 / 150 Wound Drainage 65 / 115 / RIGHT JP1 28 / 53 7 / 7 RIGHT JP2 37 / 62 16 / 16 Other: Meal NPO Percent of Meal Consumed 0% - General physical appearance well nourished, no distress - Abdomen Abdomen: Present: soft, tender (Mild incisional pain with palpation. Noted mild erythema along incision. No drainage. On CHIP with serosangionous fluid, other with mild bilous tinge color) - Labs 03/01/19 02:12 03/01/19 02:12 Diabetes panel 02/28/19 03/01/19 Range/Units 08:44 02:12 Sodium 140 (136-145) mEq/L Potassium 3.2 L 3.2 L (3.5-5.1) mEq/L Chloride 111 H (98-107) mEq/L Carbon Dioxide 22 L (23-29) mEq/L BUN 19 (8-23) mg/dL Creatinine 0.22 L (0.70-1.30) mg/dL Glucose 93 (70-105) mg/dL Calcium 7.5 L (8.6-10.3) mg/dL AST 44 H (13-39) Units/L ALT 88 H (7-52) Units/L Alkaline Phosphatase 348 H (34-104) Units/L Albumin 2.2 L (3.5-5.7) g/dL Calcium panel 03/01/19 Range/Units 02:12 Calcium 7.5 L (8.6-10.3) mg/dL Albumin 2.2 L (3.5-5.7) g/dL Pituitary panel 02/28/19 03/01/19 Range/Units 08:44 02:12 Sodium 140 (136-145) mEq/L Potassium 3.2 L 3.2 L (3.5-5.1) mEq/L Chloride 111 H (98-107) mEq/L Carbon Dioxide 22 L (23-29) mEq/L BUN 19 (8-23) mg/dL Creatinine 0.22 L (0.70-1.30) mg/dL Glucose 93 (70-105) mg/dL Calcium 7.5 L (8.6-10.3) mg/dL Adrenal panel 02/28/19 03/01/19 Range/Units 08:44 02:12 Sodium 140 (136-145) mEq/L Potassium 3.2 L 3.2 L (3.5-5.1) mEq/L Chloride 111 H (98-107) mEq/L Carbon Dioxide 22 L (23-29) mEq/L BUN 19 (8-23) mg/dL Creatinine 0.22 L (0.70-1.30) mg/dL Glucose 93 (70-105) mg/dL Calcium 7.5 L (8.6-10.3) mg/dL Total Bilirubin 1.1 H (0.3-1.0) mg/dL AST 44 H (13-39) Units/L ALT 88 H (7-52) Units/L Alkaline Phosphatase 348 H (34-104) Units/L Albumin 2.2 L (3.5-5.7) g/dL Consult Discharge Plan - Plan Instructions: Laparoscopic Cholecystectomy (DC) Additional Instructions: General Surgical Discharge Instructions 1. No pushing, pulling, or lifting greater than 15 lbs for 4 weeks. 2. You may remove your dressings and shower beginning today, but no tub baths, soaking, or swimming for 2 weeks. 3. No driving for one weeks unless otherwise specified and then you may resume driving when you are off narcotics and are safe to react in a car. 4. Apply ice 20 minutes every hour that you are awake to your abdomen and Take 650 mg acetaminophen/Tylenol every 8 hours for discomfort. If this does not relieve discomfort, you may take the as needed Percocet. Eat a small snack with pain medication as this will help reduce the risk of nausea. Take narcotics as directed. Do not take more narcotics then directed and do not share your narcotics with any other person. Do not drink alcohol while on narcotics. You can take the Zofran/ondansetron if needed for nausea or with a dose of narcotics to prevent nausea. Do not take more than 4 Grams of Tylenol daily. 5. Take stool softeners (Colace) or a water based laxative (Miralax) while taking narcotics. You may hold for loose stools. 6. Report any fevers greater than 100.5F, increase abdominal discomfort, drainage that looks like pus, increased redness or pain at the surgical site, or any vomiting. 7. Report any pain in the calves, shortness of breath, or rapid heartbeat. 8. Follow-up in the office as directed. 9. If you were prescribed antibiotics, do not stop them without talking to your provider. Referrals: Lidia Delvalle CNP [Advanced Practice Nurse] - 03/19/19 1:30 pm [facility] [Primary Care Provider[facility] - (Patient is from [place] and is going to [place])
[2019-03-01] MEDS: Ipratropium/Albuterol Neb 3 ML IH SCH ×2 (09:42→20:23)
[2019-03-01] MEDS: *HR* FentaNYL (PF) 100 MCG/2 ML VIAL IVP PRN ×2 (16:01→20:20)
[2019-03-02] MEDS: Piperacillin/Tazobactam 3.375 GM in 0.9 % Sodium Chloride Mini Bag 100 ML IVPB SCH ×2 (00:02→08:15)
[2019-03-02] MEDS: Ipratropium/Albuterol Neb 3 ML IH SCH ×2 (08:05→23:05)
--- NOTE | 2019-03-02 08:11 | Internal Med Progress Note ---
Hospitalist Progress Note - Encounter Date of Encounter: 03/02/19 Time of Encounter: 08:11 - Subjective Interval History: Denies complaints today. No abd pain, is passing gas but no BMs, no N/V, tolerating liquids. No SOB or CP. No fevers. - Exam Vitals: Temp Pulse Resp BP Pulse Ox 97.2 F L 64 16 134/88 97 03/02/19 03:12 03/02/19 03:12 03/02/19 03:12 03/02/19 03:12 03/02/19 03:12 Exam: General: NAD, good eye contact, relatively well appearing, chronic trach Thoracic: Mech breath sounds b/l, no wheezing or crackles Cardio: Normal S1 and S2, regular rate and rhythm Abdomen: Soft, nontender, nondistended. Does have RUQ incision which is well approximated without erythema. Also has CHIP drain. Also has G-tube. Extremities: Warm, well perfused. DP pulses 2+ b/l. Does have mild edema b/l LE. Skin: Scattered areas of irritation. Abdominal incisions. Neuro: Awake, fully oriented. Speech fluent. Mild contractures and significantly reduced strength b/l LE - Assessment and Plan (1) Acute cholecystitis due to biliary calculus Current Visit: Yes Status: Acute - Summary of Assessment and Plan Summary of Assessment and Plan: Michael Modi is a 63 M w hx ALS s/p trach who p/w abd pain, fever, CT showing cholecystitis and pneumoperitoneum, taken for operative cholecystectomy 02/[address] Joni Mckee. Acute cholecystitis c/b subhepatic abscess: s/p open cholecystectomy 02/26, doing relatively well post op with little pain. Does have CHIP drains in place with scant drainage. Incision sites without complication. - d/c Zosyn - advance to patient's regular diet (softs) - pain is well controlled Enterococcus bacteremia: of note, does have diaphragmatic stimulator implanted which could become infected. TTE without vegetations. - de-escalate to ampicillin 2g q4h to complete 14d iv abx, last dose 03/04 - repeat BCx remain clear PE: in recent past, will continue eliquis HTN: holding home antiHTN meds for now GERD: PPI PPx: eliquis Tele: no Activity: PT/OT to assist with assessment of status and if able to transfer FEN: per GenSurg Lines: PIV, plan for EPIV Consults: GenSurg Code: Full Dispo: patient requires inpatient eval and management at this time, anticipate d/c Monday, will be homegoing w for IV abx Internal Medicine: Result - Labs CBC & Chem 7: 03/01/19 02:12 03/01/19 02:12 - ABG Interpretation ABG results: PT/INR, D-dimer PT 18.2 Seconds (9.4-12.1) H 02/28/19 00:59 - Impressions Impressions Echocardiogram 03/01/19 08:29 Impressions: Technically sub-optimal due to clinical status and poor windows. LVEF 70%. Normal LV chamber size, wall thickness and function. Normal right ventricular structure and function. Mild left ventricular diastolic dysfunction. Mild pulmonary hypertension. Estimated RVSP is 36 mmHg. No obvious significant valvular dysfunction. No obvious vegetations visualized. Inadequate study to evalaute for endocarditis. Consider ILENE if clinically indicated. Left Ventricular Wall Motion: Rest Echo Findings All wall segments showed normal motion. Findings: Study Quality * Technically sub-optimal due to clinical status and poor windows. ECG Findings * Difficult to determine rhythm, tachycardia noted. Left Ventricle * LVEF 70%. * Normal LV chamber size, wall thickness and function. * Probable mild left ventricular diastolic dysfunction. Right Ventricle * Normal right ventricular structure and function. Left Atrium * Normal left atrial size. Right Atrium * Normal right atrial size. Interatrial Septum * Interatrial septum not well evaluated. Aortic Valve * Grossly, trileaflet aortic valve with normal function. * No aortic regurgitation. * No aortic stenosis. Mitral Valve * Normal mitral valve structure and function. * No mitral stenosis. * Trace mitral regurgitation. Tricuspid Valve * Grossly normal tricuspid valve structure and function. * Trace tricuspid regurgitation. * Mild pulmonary hypertension. * Estimated RVSP is 36 mmHg. * Estimated RA pressure is assumed to be at least 3 mmHg. IVC not well visualized. Pulmonic Valve * Pulmonic valve not well visualized. Aorta * Normally sized aortic root. Pericardium * The pericardium appears normal. IVC * The IVC is not well evaluated. Pulmonary Artery * Pulmonary artery not well visualized. Consult Discharge Plan - Plan Instructions: Laparoscopic Cholecystectomy (DC) Additional Instructions: General Surgical Discharge Instructions 1. No pushing, pulling, or lifting greater than 15 lbs for 4 weeks. 2. You may remove your dressings and shower beginning today, but no tub baths, soaking, or swimming for 2 weeks. 3. No driving for one weeks unless otherwise specified and then you may resume driving when you are off narcotics and are safe to react in a car. 4. Apply ice 20 minutes every hour that you are awake to your abdomen and Take 650 mg acetaminophen/Tylenol every 8 hours for discomfort. If this does not relieve discomfort, you may take the as needed Percocet. Eat a small snack with pain medication as this will help reduce the risk of nausea. Take narcotics as directed. Do not take more narcotics then directed and do not share your narcotics with any other person. Do not drink alcohol while on narcotics. You can take the Zofran/ondansetron if needed for nausea or with a dose of narcotics to prevent nausea. Do not take more than 4 Grams of Tylenol daily. 5. Take stool softeners (Colace) or a water based laxative (Miralax) while taking narcotics. You may hold for loose stools. 6. Report any fevers greater than 100.5F, increase abdominal discomfort, drainage that looks like pus, increased redness or pain at the surgical site, or any vomiting. 7. Report any pain in the calves, shortness of breath, or rapid heartbeat. 8. Follow-up in the office as directed. 9. If you were prescribed antibiotics, do not stop them without talking to your provider. Referrals: Lidia Delvalle CNP [Advanced Practice Nurse] - 03/19/19 1:30 pm [facility]Primary Care Provider[facility] - (Patient is Home care they see the patient every week, no PCP appointment needed per the [facility])
[2019-03-02] MEDS: Ascorbic Acid 500 MG TABLET PO SCH (08:14)
[2019-03-02] MEDS: Cholecalciferol (D-3) 1,000 UNIT (25MCG) TABLET PO SCH (08:15)
[2019-03-02] MEDS: Multivit/Ca/Min/Fe/FA 1 TAB TABLET PO SCH (08:15)
[2019-03-02] MEDS: Apixaban 5 MG TABLET PO SCH ×2 (08:16→21:16)
[2019-03-02] MEDS: *HR* FentaNYL (PF) 100 MCG/2 ML VIAL IVP PRN ×3 (08:30→20:40)
--- NOTE | 2019-03-02 10:26 | AcuteCareSurgery Progress Note ---
Date of Encounter: 03/02/19 Time of Encounter: 10:24 - Assessment and Plan (1) Acute cholecystitis due to biliary calculus Current Visit: Yes Status: Acute s/p Lap to open cholecystectomy, continuing to do well. Will advance diet to soft foods (this is the diet that he essentially has at home). Subjective Patient reports: other (Patient states pain is well controlled. Tolerating fulls. Positive flatus.) Objective Vital Signs - Last 8 Hours Temp Pulse Resp BP Pulse Ox 03/02/19 08:24 98.5 F 78 16 94 03/02/19 08:05 24 134/88 100 03/02/19 03:12 97.2 F L 64 16 134/88 97 Intake and Output 03/01/19 03/02/19 03/02/19 23:59 07:59 15:59 Intake Total 340 / 540 100 / 100 Output Total 250 / 466 215 / 215 0 / 215 Balance 90 / 74 -115 / -115 0 / -115 Intake: IV Fluids 100 / 300 100 / 100 Zosyn 3.375 GM In 0.9 % Sodium 100 / 300 100 / 100 Chloride (Mini-Bag +) 100 ML @ 25 mls/hr IVPB Q8HR [facility] Rx#: [id number] Oral 240 / 240 Output: Urine 250 / 400 200 / 200 Wound Drainage 0 / 66 15 / 15 0 / 15 RIGHT JP1 0 / 20 5 / 5 0 / 5 RIGHT JP2 0 / 46 10 / 10 0 / 10 Other: Meal Dinner NPO Percent of Meal Consumed 5% 0% - General physical appearance well nourished, no distress - Abdomen Abdomen: Present: soft, tender (minimal tenderness. LUQ incision CDI. No erythema. No drainage.) - Labs 03/01/19 02:12 03/01/19 02:12 Consult Discharge Plan - Plan Instructions: Laparoscopic Cholecystectomy (DC) Additional Instructions: General Surgical Discharge Instructions 1. No pushing, pulling, or lifting greater than 15 lbs for 4 weeks. 2. You may remove your dressings and shower beginning today, but no tub baths, soaking, or swimming for 2 weeks. 3. No driving for one weeks unless otherwise specified and then you may resume driving when you are off narcotics and are safe to react in a car. 4. Apply ice 20 minutes every hour that you are awake to your abdomen and Take 650 mg acetaminophen/Tylenol every 8 hours for discomfort. If this does not relieve discomfort, you may take the as needed Percocet. Eat a small snack with pain medication as this will help reduce the risk of nausea. Take narcotics as directed. Do not take more narcotics then directed and do not share your narcotics with any other person. Do not drink alcohol while on narcotics. You can take the Zofran/ondansetron if needed for nausea or with a dose of narcotics to prevent nausea. Do not take more than 4 Grams of Tylenol daily. 5. Take stool softeners (Colace) or a water based laxative (Miralax) while taking narcotics. You may hold for loose stools. 6. Report any fevers greater than 100.5F, increase abdominal discomfort, drainage that looks like pus, increased redness or pain at the surgical site, or any vomiting. 7. Report any pain in the calves, shortness of breath, or rapid heartbeat. 8. Follow-up in the office as directed. 9. If you were prescribed antibiotics, do not stop them without talking to your provider. Referrals: Lidia Delvalle CNP [Advanced Practice Nurse] - 03/19/19 1:30 pm [place],PCP [Primary Care Provider] - (Patient is Home care they see the patient every week, no PCP appointment [facility])
[2019-03-02] MEDS ORDERED: Ampicillin 2 GM in 0.9 % Sodium Chloride Mini Bag 100 ML IVPB SCH (16:00)
[2019-03-02] MEDS: Ampicillin 2 GM in 0.9 % Sodium Chloride Mini Bag 100 ML IVPB SCH ×2 (16:54→21:21)
[2019-03-03] MEDS: Ampicillin 2 GM in 0.9 % Sodium Chloride Mini Bag 100 ML IVPB SCH ×6 (01:00→20:10)
[2019-03-03 05:15] LABS: Hematocrit 30.8 % (37.5-50.1); Mean Corpuscular HGB Conc 31.8 g/dL (31.6-35.5); Mean Corpuscular Hemoglobin 28.3 pg (28.0-33.3); Mean Platelet Volume 9.4 fL (9.4-12.4); Platelet Count 528 K/mcL (140-400); Red Blood Count 3.46 M/mcL (4.19-5.50); Red Cell Distribution Width 14.2 % (11.5-14.5); White Blood Count 8.3 K/mcL (4.3-11.1)
[2019-03-03 05:16] LABS: Hemoglobin 9.8 g/dL (12.9-16.9)
[2019-03-03 05:41] LABS: Alanine Aminotransferase 46 Units/L (7-52); Albumin 2.5 g/dL (3.5-5.7); Albumin/Globulin Ratio 0.9 (1.1-2.2); Alkaline Phosphatase 273 Units/L (34-104); Aspartate Amino Transferase 18 Units/L (13-39); Bilirubin,Direct 0.1 mg/dL (0.0-0.2); Bilirubin,Indirect 0.6 mg/dL (0.0-1.2); Bilirubin,Total 0.7 mg/dL (0.3-1.0); Blood Urea Nitrogen 7 mg/dL (8-23); Calcium 7.8 mg/dL (8.6-10.3); Carbon Dioxide 24 mEq/L (23-29); Chloride 105 mEq/L (98-107); Globulin 2.7 g/dL (2.4-3.5); Glucose 103 mg/dL (70-105); Magnesium 1.8 mg/dL (1.6-2.6); Osmolality,Calculated 284 (280-300); Potassium 3.4 mEq/L (3.5-5.1); Sodium 138 mEq/L (136-145); Total Protein 5.2 g/dL (6.4-8.9)
--- NOTE | 2019-03-03 08:25 | Internal Med Progress Note ---
Hospitalist Progress Note - Encounter Date of Encounter: 03/03/19 Time of Encounter: 08:25 - Subjective Interval History: Patient denies complaints today. Tolerating PO. Passing gas. No N/V/D. No CP or SOB. Always complimentary of hospital and nursing. - Exam Vitals: Temp Pulse Resp BP Pulse Ox 98.3 F 75 20 109/68 96 03/03/19 07:26 03/03/19 07:26 03/03/19 07:26 03/03/19 07:26 03/03/19 07:26 Exam: General: NAD, good eye contact, relatively well appearing, chronic trach Thoracic: Mech breath sounds b/l, no wheezing or crackles Cardio: Normal S1 and S2, regular rate and rhythm Abdomen: Soft, nontender, nondistended. Does have RUQ incision which is well a pproximated without erythema. Also has CHIP drain. Also has G-tube. Extremities: Warm, well perfused. DP pulses 2+ b/l. Does have mild edema b/l LE. Skin: Scattered areas of irritation. Abdominal incisions. Neuro: Awake, fully oriented. Speech fluent. Mild contractures and significantly reduced strength b/l LE - Assessment and Plan (1) Acute cholecystitis due to biliary calculus Current Visit: Yes Status: Acute - Summary of Assessment and Plan Summary of Assessment and Plan: Michael Modi is a 63 M w hx ALS s/p trach who p/w abd pain, fever, CT showing cholecystitis and pneumoperitoneum, taken for operative cholecystectomy 02/[address] Joni Mckee. Acute cholecystitis c/b subhepatic abscess: s/p open cholecystectomy 02/26, doing relatively well post op with little pain. Does have CHIP drains in place with scant drainage. Incision sites without complication. - patient's regular diet (softs) - pain is well controlled - GenSurg to eval and consider pulling one of the CHIP drains, and one or both to be removed at outpt follow up Enterococcus bacteremia: of note, does have diaphragmatic stimulator implanted which could become infected. TTE without vegetations. - continue ampicillin 2g q4h to complete 14d iv abx, last dose 03/11 - repeat BCx remain clear - Midline in AM PE: in recent past, will continue eliquis HTN: holding home antiHTN meds for now GERD: PPI PPx: eliquis Tele: no Activity: PT/OT FEN: soft Lines: PIV, plan for midline Consults: GenSurg Code: Full Dispo: patient requires inpatient eval and management at this time, anticipate d/c Monday, will be homegoing w for IV abx Internal Medicine: Result - Labs CBC & Chem 7: 03/03/19 04:59 03/03/19 04:59 Labs: Short CBC 03/03/19 Range/Units 04:59 WBC 8.3 (4.3-11.1) K/mcL Hgb 9.8 L D (12.9-16.9) g/dL Hct 30.8 L (37.5-50.1) % Plt Count 528 H (140-400) K/mcL BMP 03/03/19 04:59 Sodium 138 Potassium 3.4 L Chloride 105 Carbon Dioxide 24 BUN 7 L Creatinine < 0.20 L Glucose 103 Calcium 7.8 L Liver Function 03/03/19 Range/Units 04:59 Total Bilirubin 0.7 (0.3-1.0) mg/dL Direct Bilirubin 0.1 (0.0-0.2) mg/dL AST 18 (13-39) Units/L ALT 46 (7-52) Units/L Alkaline Phosphatase 273 H (34-104) Units/L Albumin 2.5 L (3.5-5.7) g/dL - ABG Interpretation ABG results: PT/INR, D-dimer PT 18.2 Seconds (9.4-12.1) H 02/28/19 00:59 Consult Discharge Plan - Plan Instructions: Laparoscopic Cholecystectomy (DC) Additional Instructions: General Surgical Discharge Instructions 1. No pushing, pulling, or lifting greater than 15 lbs for 4 weeks. 2. You may remove your dressings and shower beginning today, but no tub baths, soaking, or swimming for 2 weeks. 3. No driving for one weeks unless otherwise specified and then you may resume driving when you are off narcotics and are safe to react in a car. 4. Apply ice 20 minutes every hour that you are awake to your abdomen and Take 650 mg acetaminophen/Tylenol every 8 hours for discomfort. If this does not relieve discomfort, you may take the as needed Percocet. Eat a small snack with pain medication as this will help reduce the risk of nausea. Take narcotics as directed. Do not take more narcotics then directed and do not share your narcotics with any other person. Do not drink alcohol while on narcotics. You can take the Zofran/ondansetron if needed for nausea or with a dose of narcotics to prevent nausea. Do not take more than 4 Grams of Tylenol daily. 5. Take stool softeners (Colace) or a water based laxative (Miralax) while taking narcotics. You may hold for loose stools. 6. Report any fevers greater than 100.5F, increase abdominal discomfort, drainage that looks like pus, increased redness or pain at the surgical site, or any vomiting. 7. Report any pain in the calves, shortness of breath, or rapid heartbeat. 8. Follow-up in the office as directed. 9. If you were prescribed antibiotics, do not stop them without talking to your provider. Referrals: Lidia Delvalle CNP [Advanced Practice Nurse] - 03/19/19 1:30 pm [facility] [Primary Care Provider[facility] - (Patient is Home care they see the patient every week, no PCP appointment needed [facility] the [facility])
[2019-03-03] MEDS: Ipratropium/Albuterol Neb 3 ML IH SCH ×2 (08:49→22:27)
[2019-03-03] MEDS: Apixaban 5 MG TABLET PO SCH ×2 (09:03→20:06)
[2019-03-03] MEDS: Ascorbic Acid 500 MG TABLET PO SCH (09:03)
[2019-03-03] MEDS: Cholecalciferol (D-3) 1,000 UNIT (25MCG) TABLET PO SCH (09:03)
[2019-03-03] MEDS: Multivit/Ca/Min/Fe/FA 1 TAB TABLET PO SCH (09:03)
--- NOTE | 2019-03-03 09:50 | AcuteCareSurgery Progress Note ---
Date of Encounter: 03/03/19 Time of Encounter: 09:49 - Assessment and Plan (1) Acute cholecystitis due to biliary calculus Current Visit: Yes Status: Acute s/p Lap to open cholecystectomy, doing well. Okay to clamp PEG tube. Because patient is progressing so well we will sign off. We will make certain patient has a follow-up to see us in the office in 2 weeks. Thank you very much, please contact us if there are any questions. Subjective Patient reports: other (Patient denies any problem. Tolerating by mouth diet without difficult. No nausea or vomiting.) Objective Vital Signs - Last 8 Hours Temp Pulse Resp BP Pulse Ox 03/03/19 08:50 20 96 03/03/19 07:26 98.3 F 75 20 109/68 96 03/03/19 03:32 98.4 F 73 20 135/79 97 Intake and Output 03/02/19 03/03/19 03/03/19 23:59 07:59 15:59 Intake Total 200 / 300 200 / 200 Output Total 915 / 1130 450 / 450 0 / 450 Balance -715 / -830 -250 / -250 0 / -250 Intake: IV Fluids 200 / 300 200 / 200 Ampicillin 2 GM In 0.9 % Sodium 200 / 200 200 / 200 Chloride (Mini-Bag +) 100 ML @ 200 mls/hr IVPB Q4H [facility] Rx#: [id number] Output: Urine 700 / 900 400 / 400 Gastric Tube Lavage Amount 200 / 200 50 / 50 Left Upper Quadrant 200 / 200 50 / 50 Wound Drainage 15 / 30 0 / 0 0 / 0 RIGHT JP1 5 / 10 0 / 0 0 / 0 RIGHT JP2 20 0 / 0 0 / 0 Other: Meal Dinner Percent of Meal Consumed 0% Stool Size Large Stool Consistency soft Stool Color Brown # Bowel Movement Diapers 1 Weight 84.4 kg Patient Weight 03/03/19 23:59 Weight 84.4 kg - General physical appearance well nourished, no distress - Abdomen Abdomen: Present: bowel sounds present, soft, tender (minimal incisional pain. Incision CDI. No erythema. No drainage.) - Labs 03/03/19 04:59 03/03/19 04:59 Diabetes panel 03/03/19 Range/Units 04:59 Sodium 138 (136-145) mEq/L Potassium 3.4 L (3.5-5.1) mEq/L Chloride 105 (98-107) mEq/L Carbon Dioxide 24 (23-29) mEq/L BUN 7 L (8-23) mg/dL Creatinine < 0.20 L (0.70-1.30) mg/dL Glucose 103 (70-105) mg/dL Calcium 7.8 L (8.6-10.3) mg/dL AST 18 (13-39) Units/L ALT 46 (7-52) Units/L Alkaline Phosphatase 273 H (34-104) Units/L Albumin 2.5 L (3.5-5.7) g/dL Calcium panel 03/03/19 Range/Units 04:59 Calcium 7.8 L (8.6-10.3) mg/dL Albumin 2.5 L (3.5-5.7) g/dL Pituitary panel 03/03/19 Range/Units 04:59 Sodium 138 (136-145) mEq/L Potassium 3.4 L (3.5-5.1) mEq/L Chloride 105 (98-107) mEq/L Carbon Dioxide 24 (23-29) mEq/L BUN 7 L (8-23) mg/dL Creatinine < 0.20 L (0.70-1.30) mg/dL Glucose 103 (70-105) mg/dL Calcium 7.8 L (8.6-10.3) mg/dL Adrenal panel 03/03/19 Range/Units 04:59 Sodium 138 (136-145) mEq/L Potassium 3.4 L (3.5-5.1) mEq/L Chloride 105 (98-107) mEq/L Carbon Dioxide 24 (23-29) mEq/L BUN 7 L (8-23) mg/dL Creatinine < 0.20 L (0.70-1.30) mg/dL Glucose 103 (70-105) mg/dL Calcium 7.8 L (8.6-10.3) mg/dL Total Bilirubin 0.7 (0.3-1.0) mg/dL AST 18 (13-39) Units/L ALT 46 (7-52) Units/L Alkaline Phosphatase 273 H (34-104) Units/L Albumin 2.5 L (3.5-5.7) g/dL Consult Discharge Plan - Plan Instructions: Laparoscopic Cholecystectomy (DC) Additional Instructions: General Surgical Discharge Instructions 1. No pushing, pulling, or lifting greater than 15 lbs for 4 weeks. 2. You may remove your dressings and shower beginning today, but no tub baths, soaking, or swimming for 2 weeks. 3. No driving for one weeks unless otherwise specified and then you may resume driving when you are off narcotics and are safe to react in a car. 4. Apply ice 20 minutes every hour that you are awake to your abdomen and Take 650 mg acetaminophen/Tylenol every 8 hours for discomfort. If this does not relieve discomfort, you may take the as needed Percocet. Eat a small snack with pain medication as this will help reduce the risk of nausea. Take narcotics as directed. Do not take more narcotics then directed and do not share your narcotics with any other person. Do not drink alcohol while on narcotics. You can take the Zofran/ondansetron if needed for nausea or with a dose of narcotics to prevent nausea. Do not take more than 4 Grams of Tylenol daily. 5. Take stool softeners (Colace) or a water based laxative (Miralax) while taking narcotics. You may hold for loose stools. 6. Report any fevers greater than 100.5F, increase abdominal discomfort, drainage that looks like pus, increased redness or pain at the surgical site, or any vomiting. 7. Report any pain in the calves, shortness of breath, or rapid heartbeat. 8. Follow-up in the office as directed. 9. If you were prescribed antibiotics, do not stop them without talking to your provider. Referrals: Lidia Delvalle CNP [Advanced Practice Nurse] - 03/19/19 1:30 pm [facility]PC[facility] [Primary Care Provider] - (Patient is Home care they see the patient every week, no PCP appointment needed per the [facility])
[2019-03-03] MEDS: *HR* FentaNYL (PF) 100 MCG/2 ML VIAL IVP PRN ×4 (12:46→23:10)
[2019-03-04] MEDS: Ampicillin 2 GM in 0.9 % Sodium Chloride Mini Bag 100 ML IVPB SCH ×2 (00:35→05:25)
[2019-03-04] MEDS: *HR* FentaNYL (PF) 100 MCG/2 ML VIAL IVP PRN ×4 (02:18→15:57)
[2019-03-04] MEDS: Ipratropium/Albuterol Neb 3 ML IH SCH (07:50)
--- NOTE | 2019-03-04 08:02 | Discharge Summary ---
- NOTES TO OUTPATIENT PROVIDER Notes to Outpatient Provider: Cholecystitis complicated by subhepatic abscess and enterococcus bacteremia, discharged on IV unasyn until 03/11. Date of Encounter: 03/04/19 Time of Encounter: 07:59 - Discharge Diagnosis (1) Acute cholecystitis due to biliary calculus Priority: Primary Status: Acute Hospital course: Dear Doctors, I recently had the opportunity to care for this patient during their recent hospital stay at [facility]. Michael Modi is a 63 M w hx ALS s/p trach, PE on AC, HTN, GERD, who presented at time of admission with abd pain and fever. In the ED, pt SIRS 4/4, with CT showing cholecystitis and pneumoperitoneum. He was taken for operative cholecystectomy 02/[address] Joni Mckee. Intraop findings revealed subhepatic abscess so CHIP drains left in place. His blood cultures grew enterococcus, and thus his broad spectrum abx were narrowed to ampicillin. TTE without valvular pathology. Patient had EPIV placed and home health arranged to complete 2 week course of IV abx. Due to inability for HH to get ampicillin, patient was actually discharged on unasyn. CHIP drains removed prior to discharge. Dx: Acute cholecystitis, intraabdominal abscess, severe sepsis, enterococcus bacteremia, acute anemia req 2u prbc Pertinent tests/consults: Brenda performed open cholecystectomy on 02/26 Follow up: PCP, [facility] 1-2 weeks Tests pending: none Med changes: new Unasyn 3g q6h, last dose 03/11 Mental status: awake, fully oriented Code status: Care Partner spent on discharge: 35 minutes It has been my pleasure participating in this patient's care. Please contact me with any questions or concerns regarding their hospital stay. Sincerely, Bo Westbrook MD - Discharge Medications Prescriptions: New Ampicillin/Sulbactam [Unasyn] 3,000 mg IVPB Q6HR #1 vial Continued Omeprazole [PriLOSEC] 20 mg PO DAILY Multivit-Min/Iron/Folic Acid/K [Adults Multivitamin Caplet] 1 tab PO DAILY Ferrous Sulfate [Iron] 325 mg PO DAILY Citalopram Hydrobromide [Citalopram HBr] 10 mg PO BID Cholecalciferol (D-3) [Vitamin D] 2,000 unit PO BID Ascorbic Acid [Vitamin C] 500 mg PO DAILY Apixaban [Eliquis] 5 mg PO BID Simethicone [Gas Relief] 80 mg PO QID PRN MDD gas PRN Reason: See Comments Argin/Glut/Cahmb/Collag/Mv-Min [Avi Packet] 1 each PO BID Ipratropium/Albuterol Neb [Duoneb] 3 ml IH BID LORazepam [Ativan] 0.5 mg PO QID PRN PRN Reason: ANXIETY/VENT Metoprolol [Lopressor] 25 mg PO BID Ondansetron HCl [Zofran] 4 mg PO QID PRN PRN Reason: Nausea Home Medications: Apixaban [Eliquis] 5 mg PO BID 02/26/19 [History] Argin/Glut/Cahmb/Collag/Mv-Min [Avi Packet] 1 each PO BID 02/26/19 [History] Ascorbic Acid [Vitamin C] 500 mg PO DAILY 02/26/19 [History] Cholecalciferol (D-3) [Vitamin D] 2,000 unit PO BID 02/26/19 [History] Citalopram Hydrobromide [Citalopram HBr] 10 mg PO BID 02/26/19 [History] Ferrous Sulfate [Iron] 325 mg PO DAILY 02/26/19 [History] Ipratropium/Albuterol Neb [Duoneb] 3 ml IH BID 02/26/19 [History] LORazepam [Ativan] 0.5 mg PO QID PRN 02/26/19 [History] Metoprolol [Lopressor] 25 mg PO BID 02/26/19 [History] Multivit-Min/Iron/Folic Acid/K [Adults Multivitamin Caplet] 1 tab PO DAILY 02/26/19 [History] Omeprazole [PriLOSEC] 20 mg PO DAILY 02/26/19 [History] Ondansetron HCl [Zofran] 4 mg PO QID PRN 02/26/19 [History] Simethicone [Gas Relief] 80 mg PO QID PRN MDD gas 02/26/19 [History] Ampicillin/Sulbactam [Unasyn] 3,000 mg IVPB Q6HR #1 vial 03/04/19 [Rx] Allergies/Adverse Reactions: Allergy/AdvReac Type Severity Reaction Status Date / Time No Known Allergies Allergy Verified 11/15/16 13:01 Date of admission: 02/27/19 15:13 Primary care physician: [facility]CP [facility] Consults: 02/28/19 10:00 Consult to Physical Therapy [CONS] Routine Comment: Evaluate, develop and implement POC Reason for Consult: post op Does patient have active BEDREST order?: No Is patient medically & hemodynamically stable?: Yes Patient assessed for mobility or mobilized this visit?: No 02/28/19 10:01 Consult to Occupational Therapy [CONS] Routine Comment: Evaluate, develop and implement POC Reason for Consult: postop Does patient have active BEDREST order?: No Is patient medically & hemodynamically stable?: Yes Patient assessed for mobility or mobilized this visit?: No 03/02/19 12:27 Consult to Invasive Line Access Team [CONS] Routine Reason for Consult: abx x2w Line Type: Midline - Constitutional Vitals: Temp Pulse Resp BP Pulse Ox 98.8 F 72 18 135/73 97 03/04/19 07:27 03/04/19 07:27 03/04/19 07:51 03/04/19 07:27 03/04/19 07:51 Exam: General: NAD, good eye contact, relatively well appearing, chronic trach Thoracic: Mech breath sounds b/l, no wheezing or crackles Cardio: Normal S1 and S2, regular rate and rhythm Abdomen: Soft, nontender, nondistended. Does have RUQ incision which is well approximated without erythema. Also has CHIP drain. Also has G-tube. Extremities: Warm, well perfused. DP pulses 2+ b/l. Does have mild edema b/l LE. Skin: Scattered areas of irritation. Abdominal incisions. Neuro: Awake, fully oriented. Speech fluent. Mild contractures and significantly reduced strength b/l LE - Patient Status Disposition: Home Health Service Condition: Fair Functional capacity at discharge: bed bound Overall status at discharge: patient is back to baseline - Discharge Instructions Instructions: Laparoscopic Cholecystectomy (DC) Follow Up With: Lidia Delvalle COUNT TEAM MEMBER [Advanced Practice Nurse] - 03/19/19 1:30 pm [facility] [Primary Care Provider[facility] - (Patient is Home care they see the patient every week, no PCP appointment needed [facility] the [facility]) Additional Instructions: General Surgical Discharge Instructions 1. No pushing, pulling, or lifting greater than 15 lbs for 4 weeks. 2. You may remove your dressings and shower beginning today, but no tub baths, soaking, or swimming for 2 weeks. 3. No driving for one weeks unless otherwise specified and then you may resume driving when you are off narcotics and are safe to react in a car. 4. Apply ice 20 minutes every hour that you are awake to your abdomen and Take 650 mg acetaminophen/Tylenol every 8 hours for discomfort. If this does not relieve discomfort, you may take the as needed Percocet. Eat a small snack with pain medication as this will help reduce the risk of nausea. Take narcotics as directed. Do not take more narcotics then directed and do not share your narcotics with any other person. Do not drink alcohol while on narcotics. You can take the Zofran/ondansetron if needed for nausea or with a dose of narcotics to prevent nausea. Do not take more than 4 Grams of Tylenol daily. 5. Take stool softeners (Colace) or a water based laxative (Miralax) while taking narcotics. You may hold for loose stools. 6. Report any fevers greater than 100.5F, increase abdominal discomfort, drainage that looks like pus, increased redness or pain at the surgical site, or any vomiting. 7. Report any pain in the calves, shortness of breath, or rapid heartbeat. 8. Follow-up in the office as directed. 9. If you were prescribed antibiotics, do not stop them without talking to your provider.
--- NOTE | 2019-03-04 08:32 | Acute Care Surgery Event Note ---
Date of Encounter: 03/04/19 Time of Encounter: 08:30 OK to remove JPs prior to d/c. OK for d/c from a surgical perspective.
[2019-03-04] MEDS: Multivit/Ca/Min/Fe/FA 1 TAB TABLET PO SCH (08:50)
[2019-03-04] MEDS: Apixaban 5 MG TABLET PO SCH (08:50)
[2019-03-04] MEDS: Cholecalciferol (D-3) 1,000 UNIT (25MCG) TABLET PO SCH (08:51)
[2019-03-04] MEDS: Ascorbic Acid 500 MG TABLET PO SCH (08:51)
[2019-03-04] MEDS ORDERED: Ampicillin/Sulbactam 3,000 MG in 0.9 % Sodium Chloride Mini Bag 100 ML IVPB SCH (09:30)
--- NOTE | 2019-03-04 10:40 | Physician Discharge Referral ---
Home Health/Hosp Referral Info Transfer to: Home Health Provider in Charge Post Discharge: PCP - Diagnosis (1) Acute cholecystitis due to biliary calculus Priority: Primary (c/b enterococcus bacteremia) Status: Acute - Diet/Nutrition Diet/Nutrition Orders: Mechanical Soft - Activity Activity Orders: Bedrest - Services Needed Following services are medically necessary services: Nursing, Physical Therapy, Occupational Therapy Other Treatments: iv abx - Transfer Medications Prescriptions: Ampicillin/Sulbactam [Unasyn] 3,000 mg IVPB Q6HR #1 vial Home Medications: Apixaban [Eliquis] 5 mg PO BID 02/26/19 [History] Argin/Glut/Cahmb/Collag/Mv-Min [Avi Packet] 1 each PO BID 02/26/19 [History] Ascorbic Acid [Vitamin C] 500 mg PO DAILY 02/26/19 [History] Cholecalciferol (D-3) [Vitamin D] 2,000 unit PO BID 02/26/19 [History] Citalopram Hydrobromide [Citalopram HBr] 10 mg PO BID 02/26/19 [History] Ferrous Sulfate [Iron] 325 mg PO DAILY 02/26/19 [History] Ipratropium/Albuterol Neb [Duoneb] 3 ml IH BID 02/26/19 [History] LORazepam [Ativan] 0.5 mg PO QID PRN 02/26/19 [History] Metoprolol [Lopressor] 25 mg PO BID 02/26/19 [History] Multivit-Min/Iron/Folic Acid/K [Adults Multivitamin Caplet] 1 tab PO DAILY 02/26/19 [History] Omeprazole [PriLOSEC] 20 mg PO DAILY 02/26/19 [History] Ondansetron HCl [Zofran] 4 mg PO QID PRN 02/26/19 [History] Simethicone [Gas Relief] 80 mg PO QID PRN MDD gas 02/26/19 [History] Ampicillin/Sulbactam [Unasyn] 3,000 mg IVPB Q6HR #1 vial 03/04/19 [Rx] Allergies/Adverse Reactions: Allergy/AdvReac Type Severity Reaction Status Date / Time No Known Allergies Allergy Verified 11/15/16 13:01 Certification: Further, I certify that my clinical findings support that this patient is homebound (i.e. absences from home require considerable and taxing effort and are for medical reasons or sikh services or infrequently or short duration when for other reasons) because: Homebound Reason: Leaving home requires considerable and taxing effort due to condition Attestation: My signature below is to certify that this patient is under my care and that I, or nurse practitioner, or a physician's financial administrative assistant working with me, has a [id number] encounter with this patient.
[2019-03-04 11:25] VITALS: BP 109/89
== END 2019-03-04 16:05 | disposition home health service (06) | DRG 3 ==
LOC: 3ANU 20:47 → EMEROOARM 20:47 → SUATTDRO 02-26 02:00 → 2NNU 02-26 02:59 → ICNU 02-26 21:07 → SUATTDRO 02-27 15:13 → 2NNU 02-27 17:52
PROVIDERS: ADMIT Internal Medicine; ATTEND Internal Medicine

== ENCOUNTER 2019-04-23 18:34 | Observation (INO) ==
[2019-04-23] MEDS ORDERED: Isovue-370 500 ML BOTTLE IVP ONE (19:19)
[2019-04-23] MEDS ORDERED: 0.9 % Sodium Chloride 1,000 ML IVC ONE (19:34)
[2019-04-23] MEDS ORDERED: *HR* FentaNYL (PF) 100 MCG/2 ML VIAL IVP ONE (19:34)
[2019-04-23 19:59] LABS: Basophils % 0.3 %; Eosinophils # 0.1 K/mcL (0.0-0.6); Eosinophils % 1.1 %; Hematocrit 42.7 % (37.5-50.1); Immature Granulocytes % 0.3 % (0-4); Lymphocytes # 1.5 K/mcL (0.6-4.6); Lymphocytes % 15.5 %; Mean Corpuscular HGB Conc 32.8 g/dL (31.6-35.5); Mean Corpuscular Hemoglobin 27.9 pg (28.0-33.3); Mean Corpuscular Volume 85.2 fL (83.0-100.0); Mean Platelet Volume 9.2 fL (9.4-12.4); Monocytes # 0.6 K/mcL (0.0-1.3); Monocytes % 6.5 %; Neutrophils # 7.2 K/mcL (1.6-8.9); Platelet Count 545 K/mcL (140-400); Red Blood Count 5.01 M/mcL (4.19-5.50); Red Cell Distribution Width 15.3 % (11.5-14.5); Segmented Neutrophils % 76.3 %; White Blood Count 9.5 K/mcL (4.3-11.1)
[2019-04-23 20:05] LABS: Alanine Aminotransferase 9 Units/L (7-52); Albumin 3.2 g/dL (3.5-5.7); Albumin/Globulin Ratio 0.9 (1.1-2.2); Alkaline Phosphatase 126 Units/L (34-104); Aspartate Amino Transferase 11 Units/L (13-39); BUN/Creatinine Ratio 39 (6-26); Bilirubin,Direct 0.2 mg/dL (0.0-0.2); Bilirubin,Indirect 0.8 mg/dL (0.0-1.0); Blood Urea Nitrogen 13 mg/dL (8-23); Calcium 8.9 mg/dL (8.6-10.3); Carbon Dioxide 24 mEq/L (23-29); Chloride 104 mEq/L (98-107); Globulin 3.4 g/dL (2.4-3.5); Glucose 122 mg/dL (70-105); Lipase 9 Units/L (11-82); Osmolality,Calculated 285 (280-300); Sodium 137 mEq/L (136-145); Total Protein 6.6 g/dL (6.4-8.9); eGFR For African Americans > 60 (> 60); eGFR For Non-African Americans > 60 (> 60)
[2019-04-23 20:55] LABS: Bilirubin,Urine Negative (Negative); Blood,Urine Negative (Negative); Clarity,Urine Cloudy (Clear); Color,Urine Dark Yellow (Yellow); Glucose,Urine (UA) Normal (Normal); Ketones,Urine Negative (Negative); Leukocyte Esterase,Urine Negative (Negative); Nitrite,Urine Negative (Negative); Protein,Urine Negative (Neg-Trace); Specific Gravity,Urine 1.024 (1.010-1.025); Urobilinogen,Urine Normal (Normal)
[2019-04-23 20:57] LABS: Bacteria,Urine None Seen per hpf (None-Few); Hyaline Casts,Urine Few per lpf (None-Few); RBC,Urine 0-3 per hpf (0-3); Squamous Epithelial Cell,Urine Moderate per lpf (None-Few); WBC,Urine 0-3 per hpf (0-3)
[2019-04-24] MEDS: 0.9 % Sodium Chloride 1,000 ML IVC SCH ×3 (00:30→20:46)
[2019-04-24] MEDS ORDERED: Naloxone 0.4 MG/ML INJ IVP PRN (05:12)
[2019-04-24] MEDS ORDERED: Potassium Chloride Elixir 20 MEQ/15 ML UDC PO SCH (05:17)
[2019-04-24] MEDS ORDERED: Potassium Chloride Elixir 20 MEQ/15 ML UDC PO ONE (05:48)
[2019-04-24 06:17] LABS: INR 1.5; Prothrombin Time 16.8 Seconds (9.4-12.1)
[2019-04-24 06:29] LABS: Magnesium 1.8 mg/dL (1.6-2.6); Phosphorous 3.3 mg/dL (2.7-4.5)
[2019-04-24 06:46] LABS: Thyroid Stimulating Hormone 2.038 mcIU/mL (0.340-5.600)
[2019-04-24 06:58] LABS: Folate > 22.3 ng/mL (3.0-16.0); Vitamin B12 1215 pg/mL (250-1100)
[2019-04-24] MEDS ORDERED: MetroNIDAZOLE 500 MG/100 ML 500 MG/100 ML BAG IVPB SCH ×2 (07:00→08:00)
[2019-04-24] MEDS ORDERED: levoFLOXacin 500 MG/100 ML 500 MG/100 ML BAG IVPB SCH ×2 (07:00→09:00)
[2019-04-24] MEDS: levoFLOXacin 500 MG/100 ML 500 MG/100 ML BAG IVPB SCH (08:33)
[2019-04-24] MEDS ORDERED: Ondansetron 4 MG/2 ML VIAL IVP PRN (08:54)
[2019-04-24] MEDS ORDERED: Ondansetron 4 MG/2 ML VIAL ONE (08:55)
[2019-04-24] MEDS: Sodium Chloride for inhalation 3 ML VIAL IH SCH (09:48)
[2019-04-24 09:49] LABS: Estimated Average Glucose 103 mg/dl
[2019-04-24] MEDS: MetroNIDAZOLE 500 MG/100 ML 500 MG/100 ML BAG IVPB SCH ×2 (09:55→16:13)
[2019-04-24] MEDS: Docusate Oral Soln 100 MG/10 ML UDC GTUBE SCH ×2 (12:31→20:45)
[2019-04-24] MEDS ORDERED: *HR* LORazepam 0.5 MG TABLET PO PRN (15:39)
[2019-04-24] MEDS: *HR* Heparin 5,000 UNIT/ML VIAL SQ SCH (17:21)
[2019-04-25] MEDS: MetroNIDAZOLE 500 MG/100 ML 500 MG/100 ML BAG IVPB SCH ×2 (03:05→08:38)
[2019-04-25] MEDS: *HR* Heparin 5,000 UNIT/ML VIAL SQ SCH (05:46)
[2019-04-25] MEDS: 0.9 % Sodium Chloride 1,000 ML IVC SCH (05:50)
[2019-04-25 06:48] LABS: Basophils % 0.3 %; Eosinophils # 0.1 K/mcL (0.0-0.6); Eosinophils % 1.5 %; Hematocrit 37.9 % (37.5-50.1); Immature Granulocytes % 0.3 % (0-4); Lymphocytes # 1.4 K/mcL (0.6-4.6); Lymphocytes % 23.9 %; Mean Corpuscular HGB Conc 30.9 g/dL (31.6-35.5); Mean Corpuscular Hemoglobin 27.7 pg (28.0-33.3); Mean Corpuscular Volume 89.8 fL (83.0-100.0); Mean Platelet Volume 9.5 fL (9.4-12.4); Monocytes # 0.5 K/mcL (0.0-1.3); Monocytes % 8.8 %; Neutrophils # 3.8 K/mcL (1.6-8.9); Platelet Count 407 K/mcL (140-400); Red Blood Count 4.22 M/mcL (4.19-5.50); Red Cell Distribution Width 15.4 % (11.5-14.5); Segmented Neutrophils % 65.2 %; White Blood Count 5.9 K/mcL (4.3-11.1)
[2019-04-25 06:53] LABS: Alanine Aminotransferase 7 Units/L (7-52); Albumin 2.8 g/dL (3.5-5.7); Albumin/Globulin Ratio 1.1 (1.1-2.2); Alkaline Phosphatase 103 Units/L (34-104); Aspartate Amino Transferase 13 Units/L (13-39); BUN/Creatinine Ratio 50 (6-26); Bilirubin,Total 0.8 mg/dL (0.3-1.0); Blood Urea Nitrogen 15 mg/dL (8-23); Calcium 8.4 mg/dL (8.6-10.3); Carbon Dioxide 19 mEq/L (23-29); Chloride 111 mEq/L (98-107); Chol/HDL Ratio 3.5 (0-4.9); Cholesterol 117 mg/dL (< 200); Globulin 2.6 g/dL (2.4-3.5); Glucose 88 mg/dL (70-105); HDL Cholesterol 33 mg/dL (40-59); LDL Cholesterol,Calculated 65 mg/dL (0-99); Osmolality,Calculated 296 (280-300); Potassium 3.4 mEq/L (3.5-5.1); Sodium 143 mEq/L (136-145); Total Protein 5.4 g/dL (6.4-8.9); Triglycerides 93 mg/dL (< 150); eGFR For African Americans > 60 (> 60); eGFR For Non-African Americans > 60 (> 60)
[2019-04-25 06:55] LABS: Hemoglobin 11.7 g/dL (12.9-16.9)
[2019-04-25] MEDS: Sodium Chloride for inhalation 3 ML VIAL IH SCH (07:35)
[2019-04-25] MEDS: levoFLOXacin 500 MG/100 ML 500 MG/100 ML BAG IVPB SCH (08:38)
[2019-04-25] MEDS: Docusate Oral Soln 100 MG/10 ML UDC GTUBE SCH (08:38)
[2019-04-25 10:50] VITALS: BP 125/76
== END 2019-04-25 15:51 | disposition home health service (06) ==
LOC: EMEROOARM 18:34 → 3ANU 18:34 → SUATTDRO 04-24 00:21 → 3ANU 04-24 01:17 → ICNU 04-24 01:56 → 2NNU 04-24 12:57
PROVIDERS: ADMIT Family Medicine; ATTEND Internal Medicine

== ENCOUNTER 2019-08-22 16:06 | Inpatient (IN) ==
[2019-08-22] MEDS ORDERED: Naloxone 0.4 MG/ML INJ IVP PRN (20:24)
[2019-08-22] MEDS ORDERED: 0.9 % Sodium Chloride 1,000 ML IVC SCH (20:30)
[2019-08-22] MEDS ORDERED: Azithromycin 500 MG in 0.9 % Sodium Chloride 250 ML IVPB SCH (21:00)
[2019-08-22 21:05] LABS: INR 1.9; Prothrombin Time 21.6 Seconds (9.4-12.1)
[2019-08-22 21:07] LABS: Activated Partial Thrombo Time 45.5 Seconds (26.0-36.0); Basophils % 0.3 %; Eosinophils # 0.2 K/mcL (0.0-0.6); Eosinophils % 1.6 %; Hematocrit 34.6 % (37.5-50.1); Immature Granulocytes % 0.3 % (0-4); Lymphocytes # 1.6 K/mcL (0.6-4.6); Lymphocytes % 15.4 %; Mean Corpuscular HGB Conc 31.8 g/dL (31.6-35.5); Mean Corpuscular Hemoglobin 28.9 pg (28.0-33.3); Mean Corpuscular Volume 90.8 fL (83.0-100.0); Mean Platelet Volume 10.1 fL (9.4-12.4); Monocytes # 0.7 K/mcL (0.0-1.3); Monocytes % 6.8 %; Neutrophils # 7.7 K/mcL (1.6-8.9); Platelet Count 244 K/mcL (140-400); Red Blood Count 3.81 M/mcL (4.19-5.50); Red Cell Distribution Width 14.2 % (11.5-14.5); Segmented Neutrophils % 75.6 %; White Blood Count 10.1 K/mcL (4.3-11.1)
[2019-08-22 21:24] LABS: Alanine Aminotransferase 13 Units/L (7-52); Albumin 3.3 g/dL (3.5-5.7); Albumin/Globulin Ratio 1.2 (1.1-2.2); Alkaline Phosphatase 123 Units/L (34-104); Aspartate Amino Transferase 14 Units/L (13-39); BUN/Creatinine Ratio 67 (6-26); Bilirubin,Total 1.3 mg/dL (0.3-1.0); Blood Urea Nitrogen 20 mg/dL (8-23); Calcium 8.8 mg/dL (8.6-10.3); Carbon Dioxide 23 mEq/L (23-29); Chloride 109 mEq/L (98-107); Globulin 2.7 g/dL (2.4-3.5); Glucose 93 mg/dL (70-105); Osmolality,Calculated 286 (280-300); Potassium 3.6 mEq/L (3.5-5.1); Sodium 137 mEq/L (136-145); eGFR For African Americans > 60 (> 60); eGFR For Non-African Americans > 60 (> 60)
[2019-08-22] MEDS: Acetylcysteine 10% 2 ML INHSOL IH SCH (23:56)
[2019-08-23] MEDS: Piperacillin/Tazobactam 3.375 GM in 0.9 % Sodium Chloride Mini Bag 100 ML IVPB SCH ×4 (00:01→23:13)
[2019-08-23 03:51] LABS: Bilirubin,Urine Negative (Negative); Blood,Urine Large (Negative); Clarity,Urine Cloudy (Clear); Color,Urine Yellow (Yellow); Glucose,Urine (UA) Normal (Normal); Ketones,Urine Negative (Negative); Leukocyte Esterase,Urine Large (Negative); Nitrite,Urine Negative (Negative); PH,Urine 6.5 pH Units (5.0-8.0); Protein,Urine 30 mg/dL (Neg-Trace); Specific Gravity,Urine 1.013 (1.010-1.025); Urobilinogen,Urine Normal (Normal)
[2019-08-23 03:52] LABS: Bacteria,Urine None Seen per hpf (None-Few); Hyaline Casts,Urine Few per lpf (None-Few); RBC,Urine TNTC per hpf (0-3); Squamous Epithelial Cell,Urine Moderate per lpf (None-Few); WBC,Urine TNTC per hpf (0-3)
[2019-08-23] MEDS: Acetylcysteine 10% 2 ML INHSOL IH SCH ×4 (07:07→22:26)
[2019-08-23] MEDS: Ipratropium/Albuterol Neb 3 ML IH SCH ×4 (07:08→22:26)
[2019-08-23] MEDS ORDERED: *HR* LORazepam 1 MG TABLET PO PRN (08:24)
[2019-08-23] MEDS: Simethicone 80 MG TAB.CHEW PO PRN ×4 (08:46→20:16)
[2019-08-23] MEDS: Acetaminophen 325 MG TABLET PO PRN (15:17)
[2019-08-23] MEDS ORDERED: Sennosides 8.6 MG TABLET PO PRN (17:05)
[2019-08-23] MEDS: Apixaban 5 MG TABLET PO SCH (20:16)
[2019-08-24] MEDS: Ipratropium/Albuterol Neb 3 ML IH SCH ×4 (03:16→21:46)
[2019-08-24] MEDS: Acetylcysteine 10% 2 ML INHSOL IH SCH ×4 (03:16→21:46)
[2019-08-24] MEDS ORDERED: Ipratropium/Albuterol Neb 3 ML ONE ×2 (08:00→15:24)
[2019-08-24] MEDS ORDERED: Apixaban 5 MG TABLET ONE (08:00)
[2019-08-24] MEDS ORDERED: Piperacillin/Tazobactam 3.375 GM VIAL ONE (08:00)
[2019-08-24] MEDS ORDERED: 0.9 % Sodium Chloride (Mini-Bag +) 100 ML IVBAG ONE (08:00)
[2019-08-24] MEDS: Piperacillin/Tazobactam 3.375 GM in 0.9 % Sodium Chloride Mini Bag 100 ML IVPB SCH ×3 (17:10→23:06)
[2019-08-24] MEDS: Apixaban 5 MG TABLET PO SCH ×2 (17:32→20:55)
[2019-08-24] MEDS: Melatonin 3 MG TABLET PO PRN (20:55)
[2019-08-24] MEDS: Simethicone 80 MG TAB.CHEW PO PRN (20:55)
[2019-08-25] MEDS: Ipratropium/Albuterol Neb 3 ML IH SCH ×4 (03:19→21:27)
[2019-08-25] MEDS: Acetylcysteine 10% 2 ML INHSOL IH SCH ×4 (03:19→21:27)
[2019-08-25] MEDS: Simethicone 80 MG TAB.CHEW PO PRN ×2 (04:29→20:26)
[2019-08-25 05:00] LABS: Hemoglobin 10.7 g/dL (12.9-16.9); Mean Corpuscular HGB Conc 31.5 g/dL (31.6-35.5); Mean Platelet Volume 10.2 fL (9.4-12.4); Platelet Count 305 K/mcL (140-400); Red Blood Count 3.82 M/mcL (4.19-5.50); Red Cell Distribution Width 13.8 % (11.5-14.5); White Blood Count 5.1 K/mcL (4.3-11.1)
[2019-08-25 05:21] LABS: BUN/Creatinine Ratio 92 (6-26); Blood Urea Nitrogen 22 mg/dL (8-23); Calcium 8.9 mg/dL (8.6-10.3); Carbon Dioxide 23 mEq/L (23-29); Chloride 110 mEq/L (98-107); Glucose 119 mg/dL (70-105); Osmolality,Calculated 292 (280-300); Potassium 2.8 mEq/L (3.5-5.1); Sodium 139 mEq/L (136-145); eGFR For African Americans > 60 (> 60); eGFR For Non-African Americans > 60 (> 60)
[2019-08-25] MEDS: Piperacillin/Tazobactam 3.375 GM in 0.9 % Sodium Chloride Mini Bag 100 ML IVPB SCH ×2 (08:04→17:19)
[2019-08-25] MEDS: Apixaban 5 MG TABLET PO SCH ×2 (08:09→20:26)
[2019-08-25] MEDS: Acetaminophen 325 MG TABLET PO PRN (08:46)
[2019-08-25] MEDS: *HR* LORazepam 0.5 MG TABLET PO PRN (08:46)
[2019-08-25 14:43] LABS: Magnesium 1.9 mg/dL (1.6-2.6)
[2019-08-25] MEDS: QUEtiapine Fumarate 25 MG TABLET PO SCH (20:25)
[2019-08-25] MEDS: Melatonin 3 MG TABLET PO PRN (20:26)
[2019-08-26] MEDS: Piperacillin/Tazobactam 3.375 GM in 0.9 % Sodium Chloride Mini Bag 100 ML IVPB SCH ×4 (00:11→23:31)
[2019-08-26] MEDS: Acetaminophen 325 MG TABLET PO PRN ×2 (00:15→16:31)
[2019-08-26] MEDS: Ipratropium/Albuterol Neb 3 ML IH SCH ×4 (03:23→21:48)
[2019-08-26] MEDS: Acetylcysteine 10% 2 ML INHSOL IH SCH ×4 (03:23→21:48)
[2019-08-26 07:21] LABS: BUN/Creatinine Ratio 36 (6-26); Blood Urea Nitrogen 20 mg/dL (8-23); Calcium 9.6 mg/dL (8.6-10.3); Carbon Dioxide 23 mEq/L (23-29); Chloride 113 mEq/L (98-107); Glucose 111 mg/dL (70-105); Magnesium 2.1 mg/dL (1.6-2.6); Osmolality,Calculated 299 (280-300); Phosphorous 4.2 mg/dL (2.7-4.5); Potassium 3.8 mEq/L (3.5-5.1); Sodium 143 mEq/L (136-145); eGFR For African Americans > 60 (> 60); eGFR For Non-African Americans > 60 (> 60)
[2019-08-26] MEDS ORDERED: Aminoglycoside Consult 1 EACH MC ONE (08:29)
[2019-08-26] MEDS: Apixaban 5 MG TABLET PO SCH ×2 (08:35→20:43)
[2019-08-26] MEDS: *HR* LORazepam 0.5 MG TABLET PO PRN (20:43)
[2019-08-26] MEDS: QUEtiapine Fumarate 25 MG TABLET PO SCH (20:43)
[2019-08-26] MEDS: Melatonin 3 MG TABLET PO PRN (20:44)
[2019-08-26] MEDS: Simethicone 80 MG TAB.CHEW PO PRN (20:45)
[2019-08-27 02:05] LABS: BUN/Creatinine Ratio 37 (6-26); Blood Urea Nitrogen 20 mg/dL (8-23); Calcium 9.7 mg/dL (8.6-10.3); Carbon Dioxide 25 mEq/L (23-29); Chloride 112 mEq/L (98-107); Glucose 97 mg/dL (70-105); Osmolality,Calculated 295 (280-300); Potassium 3.8 mEq/L (3.5-5.1); Sodium 141 mEq/L (136-145); eGFR For African Americans > 60 (> 60); eGFR For Non-African Americans > 60 (> 60)
[2019-08-27] MEDS: Acetaminophen 325 MG TABLET PO PRN ×2 (02:20→13:01)
[2019-08-27] MEDS: Ipratropium/Albuterol Neb 3 ML IH SCH ×4 (04:14→22:28)
[2019-08-27] MEDS: Acetylcysteine 10% 2 ML INHSOL IH SCH ×4 (04:14→22:28)
[2019-08-27] MEDS: Apixaban 5 MG TABLET PO SCH ×2 (09:48→19:47)
[2019-08-27] MEDS: Piperacillin/Tazobactam 3.375 GM in 0.9 % Sodium Chloride Mini Bag 100 ML IVPB SCH ×2 (09:49→15:55)
[2019-08-27] MEDS: Simethicone 80 MG TAB.CHEW PO PRN ×2 (18:56→19:50)
[2019-08-27] MEDS: QUEtiapine Fumarate 25 MG TABLET PO SCH (19:47)
[2019-08-27] MEDS: Melatonin 3 MG TABLET PO PRN (19:50)
[2019-08-27] MEDS: *HR* LORazepam 0.5 MG TABLET PO PRN (19:50)
[2019-08-28] MEDS: Piperacillin/Tazobactam 3.375 GM in 0.9 % Sodium Chloride Mini Bag 100 ML IVPB SCH ×3 (00:09→16:10)
[2019-08-28] MEDS: Ipratropium/Albuterol Neb 3 ML IH SCH ×4 (04:53→22:03)
[2019-08-28] MEDS: Acetylcysteine 10% 2 ML INHSOL IH SCH ×4 (04:54→22:03)
[2019-08-28] MEDS: Apixaban 5 MG TABLET PO SCH ×2 (08:05→20:24)
[2019-08-28] MEDS: Simethicone 80 MG TAB.CHEW PO PRN ×2 (08:05→16:10)
[2019-08-28] MEDS: Acetaminophen 325 MG TABLET PO PRN (17:46)
[2019-08-28] MEDS: Cefepime HCl 2,000 MG in Water for inj. (sterile) 20 ML IVP SCH (18:28)
[2019-08-28] MEDS: QUEtiapine Fumarate 25 MG TABLET PO SCH (20:22)
[2019-08-28] MEDS: *HR* LORazepam 0.5 MG TABLET PO PRN (20:23)
[2019-08-28] MEDS: Melatonin 3 MG TABLET PO PRN (20:24)
[2019-08-29] MEDS: Cefepime HCl 2,000 MG in Water for inj. (sterile) 20 ML IVP SCH ×2 (00:59→08:22)
[2019-08-29] MEDS: Ipratropium/Albuterol Neb 3 ML IH SCH ×2 (03:51→09:48)
[2019-08-29] MEDS: Acetylcysteine 10% 2 ML INHSOL IH SCH ×2 (03:51→09:48)
[2019-08-29] MEDS: Acetaminophen 325 MG TABLET PO PRN (06:31)
[2019-08-29] MEDS: Apixaban 5 MG TABLET PO SCH (08:22)
[2019-08-29] MEDS: Simethicone 80 MG TAB.CHEW PO PRN (08:22)
[2019-08-29 11:13] VITALS: BP 129/86
== END 2019-08-29 13:23 | disposition home health service (06) ==
LOC: 2NNU → SUATTDRO 08-25 16:21
PROVIDERS: ADMIT Family Medicine; ATTEND Internal Medicine